=== PATIENT | male | born 1955 | race Caucasian/White ===

== ENCOUNTER 2018-10-04 13:56 | Inpatient (IN) ==
[~2018-10-04 13:56] MED LIST: CEFAZOLIN 2000MG 2,000 MG/15 ML SYR IV SCH; LR 15ML/HR IV SCH
[2018-10-04] MEDS ORDERED: fentaNYL citrate 100 MCG/2 ML VIAL ONE ×2 (14:10→15:34)
[2018-10-04] MEDS ORDERED: MIDAZOLAM HCL 1 MG/ML 2ML VIAL ONE ×2 (14:10→15:34)
--- NOTE | 2018-10-04 14:59 | XRay Report ---
XR chest 2V routine HISTORY: 63 years-old Male PRE OP preoperative exam. No acute chest complaints. COMPARISON: Chest radiograph 07/22/2017 TECHNIQUE: AP and lateral views of the chest FINDINGS: Cardiac mediastinal and hilar silhouettes are unchanged. No pneumothorax. Subsegmental bibasilar opac ities are seen best on the lateral view. Lungs are mildly hyperinflated with diaphragm flattening. Th ere is no pneumothorax, large pleural effusion or overt pulmonary edema. Degenerative changes of the shoulders and spine. Chronic postoperative changes about the distal right clavicle suggested. Fusion hardware of the cervical spine. IMPRESSION: 1. Mild subsegmental bibasilar opacities favor atelectasis. 2. Hyperinflation. The above report was generated using voice recognition software. It may contain grammatical, syntax o r spelling errors. Electronically signed by: Nathaniel Hernandez M.D. 10/04/2018 2:58 PM
[2018-10-04 15:08] LABS: Basophils # (auto) 0.01 K/uL (0-0.2); Basophils % (auto) 0.2 %; Eosinophils % (auto) 3.4 %; Hematocrit (blood only) 41.8 % (42-52); Hemoglobin 14.3 g/dL (14.0-18.0); Immature Granulocytes # (auto) 0.02 K/uL (0.00-0.02); Immature Granulocytes % (auto) 0.3 %; Lymphocytes # (auto) 1.84 K/uL (1.2-3.4); Lymphocytes % (auto) 30.9 %; Mean Corpuscular Hgb Conc 34.2 g/dL (32-36); Mean Platelet Volume 9.2 fL (7.4-10.4); Monocytes # (auto) 0.63 K/uL (0.11-0.59); Monocytes % (auto) 10.6 %; Neutrophils # (auto) 3.26 K/uL (1.4-6.5); Neutrophils % (auto) 54.6 %; Platelet Count 313 K/uL (130-400); RDW Coefficient of Variation 14.2 % (11.5-14.5); RDW Standard Deviation 45.7 fL (36.4-46.3); Red Blood Count 4.75 M/uL (4.7-6.1); White Blood Count 5.96 K/uL (4.8-10.8)
[2018-10-04 15:24] LABS: Partial Thromboplastin Time 27.7 Seconds (21.0-31.0); Prothrombin Time 10.3 Seconds (9.0-12.0)
[2018-10-04 15:25] LABS: Albumin Level 3.7 gm/dl (3.4-5.0); BUN Creatinine Ratio 17.6 (10-20); Calcium 9.2 mg/dl (8.5-10.1); Est GFR (African American) 116.5; Est GFR (Non-African American) 100.6; Potassium 3.9 mmol/L (3.5-5.1)
[2018-10-04 15:29] LABS: Bilirubin,Total 0.4 mg/dl (0.2-1); Globulin 3.6 gm/dl (2.5-4.0); Total Protein 7.3 gm/dl (6.4-8.2)
--- NOTE | 2018-10-04 15:32 | History & Physical Report ---
Date of Service October 04, 2018 Assessment & Plan (1) Fracture of femoral neck, right, closed: DIAGNOSIS: Right femoral neck fracture. PROCEDURE: Right hip closed reduction internal fixation with percutaneous pinning. PLAN: The patient is scheduled to undergo this procedure with Dr. Louis foreman at the [facility] this afternoon as an inpatient. Risks and complications of the procedure such as infection, bleeding, pain, scar, nerve, blood vessel damage, weakness, wound problems, stiffness, incomplete relief of symptoms, hardware failure, malunion, nonunion, arthritis, blood clots, embolism, heart attack, stroke and were explained to the patient by Dr. Rainey at his visit today. Informed consent to perform the procedure was obtained. We will also obtain a preoperative EKG, CBC with differential, complete metabolic panel, PT, INR. The patient states he will proceed to the hospital to receive this testing after we conclude with our preoperative assessments. I advised the patient that I will discharge him tomorrow with prescriptions for pain medication, an order for physical therapy, anti-inflammatory agents, and then we will increase his daily aspirin to twice daily to prevent blood clots. The patient was given an order to obtain a rolli ng walker for post-surgical treatment. I did check the PDMP and no red flags were raised that would prevent us from prescribing the patient any type of narcotic analgesic. The patient and his verbalized understanding of all information provided during today's visit, thanked us for the care that they received and stated if they have questions or concerns that should arise prior to this afternoon's procedure, they will address them prior to proceeding. History of Present Illness Chief Complaint: Right hip pain Primary Care Provider: Agustin White DO CHIEF COMPLAINT: Right hip pain. HISTORY OF PRESENT ILLNESS: This 63-year-old male presents to the clinic today for his evaluation by Dr. Vivar for right hip pain. The patient states that he has chronic left foot drop since undergoing back surgery. He states that his left toe caught on the edge of a sidewalk and he fell onto his right hip on August 20. Since that time, he has had persistent pain in his right groin area. He states that he saw his PCP at the [facility] and was diagnosed with SI joint dysfunction, had manipulation done that did help with some posterior lower back pain, but he states that the right hip pain has persisted. The patient had an MRI done of the right hip and it shows a minimally displaced right femoral neck fracture. PAST SURGICAL HISTORY: Lumbar laminectomy, irrigation and debridement of the spine, cervical laminectomy with fusion, bilateral total knee replacement, bilateral knee arthroscopy, colonoscopy, inguinal hernia repair, right carpal tunnel release, right wrist fracture, ORIF, right rotator cuff repair. PAST MEDICAL HISTORY: Atrial fibrillation, dural tear, SIADH, hyperlipidemia, mitral valve prolapse, ocular myasthenia, and spinal stenosis. FAMILY HISTORY: Positive for hypertension, cancer, and stroke. ALLERGIES: The patient has no known drug allergies. CURRENT MEDICATIONS: Ambien, unknown dosage daily, aspirin 81-mg tablet daily, atorvastatin 10-mg oral tablet daily, calcium with vitamin D 500 mg 1 tablet twice daily, Flomax 0.8 mg daily, Lotrisone 1%-0.5% topical cream as needed, multivitamin 1 tab daily, propafenone 225-mg oral tablet daily, pyridostigmine 60-mg oral tablet 1 tab 4 times daily, simvastatin 20-mg oral tablet 1/2 tab at bedtime, Tylenol 500-mg oral tablet 2 tabs every 8 hours as needed for pain and vitamin E 1000 international units daily. SOCIAL HISTORY: The patient states that he was a pack per day smoker but quit in 1986. He consumes approximately 3 alcoholic beverages per week, but denies any illicit drug use. MRI: MRI of the right hip done on 09/29 shows a complete fracture through the femoral neck with surrounding edema with slight displacement less than 1 mm in size. Allergies Allergy/AdvReac Type Severity Reaction Status Date / Time No Known Allergies Allergy Unverified 07/12/17 11:40 Home Medications Home Medications Medication Instructions Recorded Confirmed Type ASPIRIN (ASPIRIN EC) 81 mg PO QAM #0 07/05/17 10/04/18 History Acetaminophen Tab (TYLENOL) 650 mg PO BID #0 tab 07/05/17 10/04/18 History CALCIUM 600 mg PO BID #0 07/05/17 History Flecainide (Tambocor) 100 mg PO BID #0 tab 07/05/17 History Loratadine (Claritin) 10 mg PO PRN #0 tab 07/05/17 10/04/18 History Multivitamin 1 tab PO QAM #0 tab 07/05/17 10/04/18 History NAPROXEN (NAPROSYN) 250 mg PO BID #0 tab 07/05/17 10/04/18 History Pyridostigmine [place] (Mestinon) 60 mg PO QID #0 tab 07/05/17 10/04/18 History Simvastatin (Zocor) 10 mg PO QPM #0 tab 07/05/17 10/04/18 History Terbinafine (Terbinafine HCl) 250 mg PO QAM #0 07/05/17 10/04/18 History VITAMIN E 1 tab PO BID #0 07/05/17 10/04/18 History propafenone 10/04/18 History Past Med/Surg History Medical History Atrial fibrillation (Acute) DVT (deep venous thrombosis) (Acute) Family history of reaction to anesthesia (Acute) [place] filter in place (Acute) Hyperlipemia (Acute) Meningitis after procedure (Acute) Pulmonary embolus (Acute) Sepsis (Acute) Social History Preferred Language: Slovak Communication Ability: Effective 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 No open skin lesions or discharge. Eyes: Pupils are equal and react to light and accommodating. Extraocular movements are intact. Throat: Posterior oropharynx is clear with absence of edema, erythema or exudate. Cardiovascular exam: The patient has a regular rate and rhythm with a grade 1- 2/6 holosystolic murmur heard best over the left upper sternal border. Lungs: Auscultation of lung gross reveals clear breath sounds throughout, no wheezing, rales, or rhonchi. Abdomen is mildly obese, nondistended, nontender with normoactive bowel sounds. Extremities: Left hip. The patient has a positive log roll test, positive Stinchfield test. Range of motion of the hip is limited to 90 degrees of flexion and external rotation to 50 degrees, internal rotation to 20 degrees. Impingement and Scour tests are both positive. The patient ex periences referred groin pain with internal and external rotation with the hip flexed. The patient does walk with an antalgic gait as well. Neurological exam: Cranial nerves 2-12 are intact. No motor or sensory deficit. Psychological/general exam: The patient is alert and oriented x3 with proper grooming and hygiene. Results & Data Vital Signs (Past 12 Hours) Vital Signs Temp Pulse Resp BP Pulse Ox 10/04/18 15:14 37 C 70 16 129/91 97 Laboratory Results 10/04/18 10/04/18 10/04/18 Range/Units 14:13 14:09 14:09 WBC (4.8-10.8) K/uL RBC (4.7-6.1) M/uL Hgb (14.0-18.0) g/dL Hct (42-52) % MCV (80-100) fL MCH (25-34) pg MCHC (32-36) g/dL RDW Std Deviation (36.4-46.3) fL RDW Coeff of Jesse (11.5-14.5) % Plt Count (130-400) K/uL MPV (7.4-10.4) fL Immature Gran % (Auto) % Neut % (Auto) % Lymph % (Auto) % Foster % (Auto) % Eos % (Auto) % Baso % (Auto) % Immature Gran # (Auto) (0.00-0.02) K/uL Neut # (Auto) (1.4-6.5) K/uL Lymph # (Auto) (1.2-3.4) K/uL Foster # (Auto) (0.11-0.59) K/uL Eos # (Auto) (0-0.5) K/uL Baso # (Auto) (0-0.2) K/uL PT 10.3 (9.0-12.0) Seconds INR 1.0 (0.9-1.1) APTT 27.7 (21.0-31.0) Seconds PTT Ratio 1.0 Sodium 142 (136-145) mmol/L Potassium 3.9 (3.5-5.1) mmol/L Chloride 109 H (98-107) mmol/L Carbon Dioxide 27 (21-32) mmol/L Anion Gap 6.0 (3-11) BUN 13 (7-18) mg/dl Creatinine 0.71 (0.6-1.4) mg/dl Est Cr Clr Drug Dosing 123.0 ml/min Est GFR ( Amer) 116.5 Est GFR (Non-Af Amer) 100.6 BUN/Creatinine Ratio 17.6 (10-20) Glucose 77 (70-99) mg/dl Calcium 9.2 (8.5-10.1) mg/dl Total Bilirubin 0.4 (0.2-1) mg/dl AST 15 (15-37) U/L ALT 27 (12-78) U/L Alkaline Phosphatase 167 H (45-117) U/L Total Protein 7.3 (6.4-8.2) gm/dl Albumin 3.7 (3.4-5.0) gm/dl Globulin 3.6 (2.5-4.0) gm/dl Albumin/Globulin Ratio 1.0 (0.9-2) Blood Type Pending Antibody Screen Pending 10/04/18 Range/Units 14:09 WBC 5.96 (4.8-10.8) K/uL RBC 4.75 (4.7-6.1) M/uL Hgb 14.3 (14.0-18.0) g/dL Hct 41.8 L (42-52) % MCV 88.0 (80-100) fL MCH 30.1 (25-34) pg MCHC 34.2 (32-36) g/dL RDW Std Deviation 45.7 (36.4-46.3) fL RDW Coeff of Jesse 14.2 (11.5-14.5) % Plt Count 313 (130-400) K/uL MPV 9.2 (7.4-10.4) fL Immature Gran % (Auto) 0.3 % Neut % (Auto) 54.6 % Lymph % (Auto) 30.9 % Foster % (Auto) 10.6 % Eos % (Auto) 3.4 % Baso % (Auto) 0.2 % Immature Gran # (Auto) 0.02 (0.00-0.02) K/uL Neut # (Auto) 3.26 (1.4-6.5) K/uL Lymph # (Auto) 1.84 (1.2-3.4) K/uL Foster # (Auto) 0.63 H (0.11-0.59) K/uL Eos # (Auto) 0.20 (0-0.5) K/uL Baso # (Auto) 0.01 (0-0.2) K/uL PT (9.0-12.0) Seconds INR (0.9-1.1) APTT (21.0-31.0) Seconds PTT Ratio Sodium (136-145) mmol/L Potassium (3.5-5.1) mmol/L Chloride (98-107) mmol/L Carbon Dioxide (21-32) mmol/L Anion Gap (3-11) BUN (7-18) mg/dl Creatinine (0.6-1.4) mg/dl Est Cr Clr Drug Dosing ml/min Est GFR ( Amer) Est GFR (Non-Af Amer) BUN/Creatinine Ratio (10-20) Glucose (70-99) mg/dl Calcium (8.5-10.1) mg/dl Total Bilirubin (0.2-1) mg/dl AST (15-37) U/L ALT (12-78) U/L Alkaline Phosphatase (45-117) U/L Total Protein (6.4-8.2) gm/dl Albumin (3.4-5.0) gm/dl Globulin (2.5-4.0) gm/dl Albumin/Globulin Ratio (0.9-2) Blood Type Antibody Screen
[2018-10-04] MEDS ORDERED: BUPIVACAINE 0.5 % 5 MG/1 ML PF 10ML VIAL ONE (16:29)
--- NOTE | 2018-10-04 16:40 | Anesthesiology Consultation ---
Date of Service October 04, 2018 Assessment & Plan Chart Review Chart Review: Acceptable Risk for Surgery Consults Requested none History Surgery Operation Date: 10/04/18 08:50 Proposed Procedures p Right Hip Closed Reduction Internal Fixation, Percutaneous Pinning - Louis Rainey MD Height/Weight Height: 5 ft 10 in Weight: 92.323 kg Allergies Allergy/AdvReac Type Severity Reaction Status Date / Time No Known Allergies Allergy Unverified 07/12/17 11:40 Medications Home Medications Medication Instructions Recorded Confirmed Last Taken ASPIRIN (ASPIRIN EC) 81 mg PO QAM #0 07/05/17 10/04/18 10/03/18 19:00 Acetaminophen Tab (TYLENOL) 650 mg PO BID #0 tab 07/05/17 10/04/18 10/04/18 07:00 CALCIUM 600 mg PO BID #0 07/05/17 08/31/16 Flecainide (Tambocor) 100 mg PO BID #0 tab 07/05/17 Unknown Loratadine (Claritin) 10 mg PO PRN #0 tab 07/05/17 10/04/18 09/27/18 Multivitamin 1 tab PO QAM #0 tab 07/05/17 10/04/18 10/04/18 07:00 NAPROXEN (NAPROSYN) 250 mg PO BID #0 tab 07/05/17 10/04/18 Unknown Pyridostigmine [place] (Mestinon) 60 mg PO QID #0 tab 07/05/17 10/04/18 10/04/18 07:00 Simvastatin (Zocor) 10 mg PO QPM #0 tab 07/05/17 10/04/18 10/03/18 19:00 Terbinafine (Terbinafine HCl) 250 mg PO QAM #0 07/05/17 10/04/18 10/03/18 19:00 VITAMIN E 1 tab PO BID #0 07/05/17 10/04/18 10/03/18 19:00 propafenone 10/04/18 10/04/18 07:00 NPO Date Last Intake of Fluids: 10/04/18 Time Last Intake of Fluids: 07:30 Date Last Intake of Solids: 10/04/18 Time Last Intake of Solids: 07:30 Past Medical History Medical History Atrial fibrillation (Acute) DVT (deep venous thrombosis) (Acute) Family history of reaction to anesthesia (Acute) [place] filter in place (Acute) Hyperlipemia (Acute) Meningitis after procedure (Acute) Pulmonary embolus (Acute) Sepsis (Acute) Social History Smoking Status: Former smoker Hx Alcohol Use: Yes Alcohol type: beer and wine alcohol intake frequency: a few times a week Physical Exam Vital Signs Last Vital Signs Temp 37 C 10/04/18 15:14 Pulse 70 10/04/18 15:14 Resp 16 10/04/18 15:14 BP 129/91 10/04/18 15:14 Pulse Ox 97 10/04/18 15:14 Testing Laboratory Results 10/04/18 14:09 10/04/18 14:09 PT 10.3 Seconds (9.0-12.0) 10/04/18 14:09 INR 1.0 (0.9-1.1) 10/04/18 14:09 APTT 27.7 Seconds (21.0-31.0) 10/04/18 14:09
[2018-10-04] MEDS ORDERED: ONDANSETRON INJ 2 MG/ML 2 ML VIAL IV PRN ×3 (16:41→18:32)
[2018-10-04] MEDS ORDERED: ePHEDrine sulfate 50 MG/ML AMP IV PRN ×2 (16:41→18:32)
[2018-10-04] MEDS ORDERED: DEXAMETHASONE SOD INJ 4 MG/ML VIAL IV PRN (16:41)
[2018-10-04] MEDS ORDERED: HYDROmorphone INJ 2 MG/ML SYR/VIAL IV PRN (16:41)
[2018-10-04] MEDS ORDERED: fentaNYL citrate 100 MCG/2 ML VIAL IV PRN (16:41)
[2018-10-04] MEDS ORDERED: ATROPINE SULFATE 0.1 MG/ML 10ML SYR IV PRN ×2 (16:41→18:32)
--- NOTE | 2018-10-04 16:43 | History & Physical Bridge Note ---
Date of Service October 04, 2018 History & Physical Bridge Note I have examined the patient, reviewed the History & Physical and in the interval since the performance of the History & Physical I have noted the following changes of clinical significance: proceeding to OR today
[2018-10-04] MEDS ORDERED: PHENYLEPHRINE 100MCG/ML 5ML SYR ONE (17:33)
[2018-10-04] MEDS ORDERED: PROPOFOL IV EMULSION 10 MG/ML 20 ML VIAL IV ONE ×2 (17:33→17:51)
[2018-10-04] MEDS ORDERED: LIDOCAINE HCL 2% 2 ML VIAL/AMP(20MG/ML) INFIL ONE (17:33)
[2018-10-04] MEDS ORDERED: ePHEDrine sulfate 50 MG/ML SYR ONE (17:33)
--- NOTE | 2018-10-04 18:21 | Fluoroscopy Report ---
FL hip RT 2-3V CLINICAL HISTORY: Right hip fracture. COMPARISON STUDY: Right hip 10/04/2018. FLUOROSCOPY TIME: 1 minute and 24 seconds. FINDINGS: 4 fluoroscopic spot images of the right hip demonstrates internal fixation of the femoral n rose fracture with 3 cannulated screws. The hardware appears intact. IMPRESSION: Fluoroscopy provided for internal fixation of a right femoral neck fracture. Electronically signed by: Marko Martinez M.D. 10/04/2018 6:20 PM
[2018-10-04] MEDS ORDERED: OXYCODONE HCL IR 5 MG TAB (IMMEDIATE RELEASE) PO PRN (18:24)
[2018-10-04] MEDS ORDERED: NALOXONE HCL 0.4 MG/1 ML VIAL/CARP IV PRN (18:24)
[2018-10-04] MEDS ORDERED: BISACODYL 10 MG SUPP PR PRN (18:24)
[2018-10-04] MEDS ORDERED: MAGNESIUM HYDROXIDE SUSP 30 ML UDC PO PRN (18:24)
[2018-10-04] MEDS ORDERED: MoRPHine SULFATE 2 MG/ML CARP IV PRN (18:24)
--- NOTE | 2018-10-04 18:24 | Operative Report ---
Post Operative Report Pre & Post Diagnosis Operation Date: 10/04/18 08:50 Pre-Op Diagnosis: right femoral neck fracture Post-Op Diagnosis: right femoral neck fracture Procedure Operation Date: 10/04/18 08:50 Actual Procedures p Right Hip Closed Reduction Internal Fixation, Percutaneous Pinning(Right) - Louis Rainey MD Surgeon Louis Rainey MD Concrete Vibrator Operator Andrea Chris PA-C Estimated Blood Loss 25 Findings Consistent with Post-Op Diagnosis Specimens none Complications none Disposition Accompanied Patient To Recovery: Yes Disposition: Recovery Room Description of Procedure I was present during the entire procedure assisting with wound closure and dressing application. Please see Dr. Rainey procedure note for specifics of the case. I attest to the content of the Intraoperative Record and any orders documented therein. Any exceptions are noted below.
[2018-10-04] MEDS ORDERED: DiphenhydrAMINE HCL 50 MG/ML VIAL IV PRN (18:28)
[2018-10-04] MEDS ORDERED: METOCLOPRAMIDE HCL INJ 5 MG/ML 2 ML VIAL IV PRN (18:28)
[2018-10-04] MEDS ORDERED: TAMSULOSIN HCL 0.4 MG CAP PO PRN (18:28)
[2018-10-04] MEDS ORDERED: KETOROLAC 30 MG/ML VIAL IV PRN (18:32)
[2018-10-04] MEDS ORDERED: HYDROmorphone INJ 1 MG/ML SYRINGE IV PRN (18:32)
[2018-10-04] MEDS ORDERED: LORATADINE 10 MG TAB PO PRN (18:45)
--- NOTE | 2018-10-04 19:14 | XRay Report ---
XR hip RT min 2V CLINICAL HISTORY: Post-Operative implant position COMPARISON: 10/04/2018 DISCUSSION: 3 cannulated femoral neck screws fixate a subcapital right hip fracture. Alignment appear s satisfactory. IMPRESSION: Internally fixated subcapital hip fracture with 3 cannulated screws Electronically signed by: Martín Martinez M.D. 10/04/2018 7:13 PM
--- NOTE | 2018-10-04 19:20 | Anesthesiology Progress Note ---
Date of Service October 04, 2018 Anesthesia Post Procedure Vital Signs Vital Signs: Temp Pulse Pulse Resp BP BP Pulse Ox 10/04/18 19:10 60 13 132/95 100 10/04/18 19:00 61 19 130/87 100 10/04/18 18:50 72 22 115/84 100 10/04/18 18:40 66 18 131/87 100 10/04/18 18:30 74 21 125/86 100 10/04/18 18:23 36.2 C L 86 18 114/84 100 10/04/18 15:14 37 C 70 16 129/91 97 Pain Intensity Right Hip: Pain Intensity: 0 Transfer of Care Handoff Completed per policy Notes Mental Status: alert / awake / arousable and participated in evaluation Patient Amnestic to Procedure: Yes Nausea / Vomiting: adequately controlled Pain: adequately controlled Airway Patency, RR, SpO2: stable & adequate BP & HR: stable & adequate Hydration State: stable & adequate Neuraxial Anesthesia: was administered and sensory block is resolving Anesthetic Complications: no major complications apparent
[2018-10-04] MEDS ORDERED: ACETAMINOPHEN 325 MG TAB PO PRN (20:00)
[2018-10-04] MEDS ORDERED: SODIUM CHLORIDE 0.9% 1000ML 1,000 ML IV SCH (20:00)
[2018-10-04] MEDS ORDERED: NAPROXEN 250 MG TAB PO PRN (20:03)
[2018-10-04] MEDS ORDERED: SIMVASTATIN 10 MG TAB PO SCH (21:00)
[2018-10-04] MEDS ORDERED: SENNA 8.6 MG TAB PO SCH (21:00)
[2018-10-04] MEDS: CEFAZOLIN 2000MG 2,000 MG/15 ML SYR IV SCH (21:05)
[2018-10-04] MEDS: ASPIRIN 81 MG ECTAB PO SCH (21:05)
[2018-10-04] MEDS: PYRIDOSTIGMINE BROMIDE 60 MG TAB PO SCH (21:06)
[2018-10-04] MEDS: TOCOPHERYL, DL-ALPHA 400 UNITS CAP PO SCH (21:07)
[2018-10-04] MEDS: ACETAMINOPHEN 500 MG TAB PO SCH (21:09)
--- NOTE | 2018-10-05 00:29 | Operative Report ---
DATE OF OPERATION: 10/04/2018 PREOPERATIVE DIAGNOSIS: Right nondisplaced closed femoral neck fracture. POSTOPERATIVE DIAGNOSIS: Right nondisplaced closed femoral neck fracture. OPERATION PERFORMED: Closed reduction percutaneous pinning of right nondisplaced femoral neck fracture. SURGEON: Louis Rainey MD DUPLICATING MACHINE SERVICER: Christo Chris. ESTIMATED BLOOD LOSS: 25 mL. INTRAVENOUS FLUIDS: 1000 mL crystalloid. SPECIMENS: None. COMPLICATIONS: None. IMPLANTS: Three Synthes 7.3 mm screws, measuring 100, 95, and 90 mm. The 100 mm screw head 32 mm thread lengths and the other 2 screws had 16 mm thread lengths. INDICATIONS: Mr. Hart is a 63-year-old gentleman who took a hard fall 5 weeks ago. He was able to walk on it afterwards but continued to have hip pain. He was evaluated down in [place] where x-rays were obtained which were negative. He was allowed to weightbear on it and started to get better by the time he first presented to my clinic. X-rays at that time similarly were negative. However, a week or two later, he continued to have hip pain with difficulty ambulating and therefore we sent him for an MRI, which showed a nondisplaced fracture of the femoral neck. His hip joint is relatively well preserved with only mild arthritis and therefore I discussed with him treatment options including a nonsurgical treatment versus surgery with a closed reduction percutaneous pinning versus a total hip. I think that if we can get this fracture to heal that is the best option for him in the short term, although he understands there is a chance he may need a total hip in the [facility]. After reviewing all his options, he elected to proceed with surgery. All questions were answered. Informed consent was signed. DESCRIPTION OF OPERATION: The patient was identified in the preoperative holding area where his surgical site was marked. He was given a spinal anesthetic, then brought back to the main operating room where he was placed on the operating room table and all bony prominences were padded. Intravenous sedation was administered. He was placed on the hip fracture table with the contralateral leg abducted and flexed ____ C-arm fluoroscopy of the operative right hip. Fluoroscopy was brought in to verify that we could get our proper images and that we had an excellent reduction of his nondisplaced fracture, which was confirmed. The extremity was then prepped and draped in the normal sterile fashion. Prior to incision, a multidisciplinary timeout was called. All in the room were in agreement. I began by marking out on his skin with the AP and lateral views, the proper incision site for our skin. A 4 cm long incision was then made over the lateral aspect of the thigh. We dissected down through subcutaneous tissues to the level of the fascia. We then placed our first screw by hand for the inferior screw of an inverted triangle. This was optimized on the AP and lateral views and then drilled up along the inferior aspect of the femoral neck into the femoral head, stopping just short of the subchondral bone. Next, our anterior superior screw was placed in using a similar technique utilizing both AP and lateral fluoroscopic views. Finally, the third posterior superior K-wire was placed under fluoroscopy. We then took our measurements. We then drilled the cortex and up through the fracture. The screws were then sequentially placed starting with the inferior screw. This was a 32 mm threaded screw which did cross the fracture site and gave us good compression of the fracture as we tightened down the screw with an excellent bite. We then used 16 mm threaded screws as 32 mm thread length was not likely to cross the fracture site with these screws. These were placed without difficulty under fluoroscopic guidance. The wires were then removed. We then used fluoroscopy checking every 10 degrees between a completely vertical and a crosstable in lateral position to confirm that the screws were out of the joint on all views which was confirmed. The wound was then irrigated with copious amounts of normal saline. The subcutaneous layer was closed with a single inverted #1 Vicryl suture. A 2-0 Vicryl were used in interrupted buried fashion for the deep dermis. Zhang were used for the skin. Xeroform, 4 x 4's, and a Tegaderm dressing was placed. The patient's sedation was lifted. He was transferred to the hospital bed and then transferred to the recovery room in stable condition. POSTOPERATIVE COURSE: The patient will be admitted overnight for pain control and monitoring. He will work with physical therapy tomorrow, weightbearing as tolerated on the right lower extremity. He will be on aspirin for DVT prophylaxis. I attest to the content of the Intraoperative Record and any orders documented therein. Any exception s are noted below.
[2018-10-05] MEDS: ACETAMINOPHEN 500 MG TAB PO SCH (05:39)
[2018-10-05] MEDS: CEFAZOLIN 2000MG 2,000 MG/15 ML SYR IV SCH (05:39)
[2018-10-05 06:35] LABS: Basophils # (auto) 0.01 K/uL (0-0.2); Basophils % (auto) 0.1 %; Eosinophils # (auto) 0.03 K/uL (0-0.5); Eosinophils % (auto) 0.3 %; Hematocrit (blood only) 40.5 % (42-52); Hemoglobin 13.8 g/dL (14.0-18.0); Immature Granulocytes # (auto) 0.03 K/uL (0.00-0.02); Immature Granulocytes % (auto) 0.3 %; Lymphocytes % (auto) 16.4 %; Mean Corpuscular Hgb Conc 34.1 g/dL (32-36); Mean Corpuscular Volume 88.8 fL (80-100); Mean Platelet Volume 8.9 fL (7.4-10.4); Monocytes # (auto) 0.93 K/uL (0.11-0.59); Monocytes % (auto) 10.2 %; Neutrophils # (auto) 6.63 K/uL (1.4-6.5); Neutrophils % (auto) 72.7 %; Platelet Count 286 K/uL (130-400); RDW Coefficient of Variation 14.3 % (11.5-14.5); RDW Standard Deviation 46.6 fL (36.4-46.3); Red Blood Count 4.56 M/uL (4.7-6.1); White Blood Count 9.13 K/uL (4.8-10.8)
[2018-10-05 07:03] LABS: Calcium 8.6 mg/dl (8.5-10.1); Creatinine Clr Calc Pharmacy 105.4 ml/min; Est GFR (African American) 109.3; Est GFR (Non-African American) 94.3; Potassium 4.5 mmol/L (3.5-5.1)
[2018-10-05] MEDS: TOCOPHERYL, DL-ALPHA 400 UNITS CAP PO SCH (08:22)
[2018-10-05] MEDS: PYRIDOSTIGMINE BROMIDE 60 MG TAB PO SCH (08:22)
[2018-10-05] MEDS: ASPIRIN 81 MG ECTAB PO SCH (08:23)
[2018-10-05] MEDS ORDERED: MULTIVITAMIN TAB PO SCH (09:00)
[2018-10-05] MEDS ORDERED: ASPIRIN 81 MG ECTAB PO SCH (09:00)
[2018-10-05] MEDS ORDERED: TERBINAFINE HCL 250 MG TAB PO SCH (09:00)
--- NOTE | 2018-10-05 09:44 | Orthopedic Progress Note ---
Date of Service October 05, 2018 Assessment & Plan (1) Fracture of femoral neck, right, closed: POD 1 - s/p ORIF right femoral neck subacute fracture May be out of bed, weight bearing as tolerated right lower extremity with assistance of crutches Regular diet as tolerated Pain medication as prescribed. Ice/elevation as needed for pain/swelling Allowed for full range of motion right hip joint as tolerated. May shower as tolerated, leave dressings in place. ASA 81 mg BID for DVT prophylaxis. PT today. Discharge instructions reviewed. Plan to discharge to home today with his . All questions answered. Present on Admission?: Yes Subjective Patient is doing well, feeling much less pain that before surgery. He denies chest pain, shortness of breath, nausea, vomiting, issues with going to the bathroom. He states that he has been out of bed this morning. Saw PT. Using crutches to assist with ambulation. Physical Exam Physical Exam: right hip incision dressing clean, dry, intact. Moves hip well without pain. No distal edema, Teds stockings in place. Distal N/V intact. strength 5/5. No calf tenderness. Results & Data Vital Signs (Past 12 Hours) Vital Signs Temp Pulse Pulse Resp BP Pulse Ox 10/05/18 07:40 36.4 C L 68 18 118/72 98 10/05/18 03:50 36.8 C 84 18 132/87 97 10/04/18 23:35 36.4 C L 83 16 137/91 96 10/04/18 22:20 36.3 C L 81 18 124/85 97 Laboratory Results 10/05/18 10/05/18 10/04/18 Range/Units 06:10 06:10 14:13 WBC 9.13 (4.8-10.8) K/uL RBC 4.56 L (4.7-6.1) M/uL Hgb 13.8 L (14.0-18.0) g/dL Hct 40.5 L (42-52) % MCV 88.8 (80-100) fL MCH 30.3 (25-34) pg MCHC 34.1 (32-36) g/dL RDW Std Deviation 46.6 H (36.4-46.3) fL RDW Coeff of Jesse 14.3 (11.5-14.5) % Plt Count 286 (130-400) K/uL MPV 8.9 (7.4-10.4) fL Immature Gran % (Auto) 0.3 % Neut % (Auto) 72.7 % Lymph % (Auto) 16.4 % [place] % (Auto) 10.2 % Eos % (Auto) 0.3 % Baso % (Auto) 0.1 % Immature Gran # (Auto) 0.03 H (0.00-0.02) K/uL Neut # (Auto) 6.63 H (1.4-6.5) K/uL Lymph # (Auto) 1.50 (1.2-3.4) K/uL [place]odd[place] # (Auto) 0.93 H (0.11-0.59) K/uL Eos # (Auto) 0.03 (0-0.5) K/uL Baso # (Auto) 0.01 (0-0.2) K/uL PT (9.0-12.0) Seconds INR (0.9-1.1) APTT (21.0-31.0) Seconds PTT Ratio Sodium 141 (136-145) mmol/L Potassium 4.5 D (3.5-5.1) mmol/L Chloride 107 (98-107) mmol/L Carbon Dioxide 26 (21-32) mmol/L Anion Gap 8.0 (3-11) BUN 13 (7-18) mg/dl Creatinine 0.83 (0.6-1.4) mg/dl Est Cr Clr Drug Dosing 105.4 ml/min Est GFR ( Amer) 109.3 Est GFR (Non-Af Amer) 94.3 BUN/Creatinine Ratio 16.0 (10-20) Glucose 108 H (70-99) mg/dl Calcium 8.6 (8.5-10.1) mg/dl Total Bilirubin (0.2-1) mg/dl AST (15-37) U/L ALT (12-78) U/L Alkaline Phosphatase (45-117) U/L Total Protein (6.4-8.2) gm/dl Albumin (3.4-5.0) gm/dl Globulin (2.5-4.0) gm/dl Albumin/Globulin Ratio (0.9-2) Blood Type O Positive Antibody Screen NEGATIVE 07/23/19 07/23/19 07/23/19 Range/Units 14:09 14:09 14:09 WBC 5.96 (4.8-10.8) K/uL RBC 4.75 (4.7-6.1) M/uL Hgb 14.3 (14.0-18.0) g/dL Hct 41.8 L (42-52) % MCV 88.0 (80-100) fL MCH 30.1 (25-34) pg MCHC 34.2 (32-36) g/dL RDW Std Deviation 45.7 (36.4-46.3) fL RDW Coeff of Jesse 14.2 (11.5-14.5) % Plt Count 313 (130-400) K/uL MPV 9.2 (7.4-10.4) fL Immature Gran % (Auto) 0.3 % Neut % (Auto) 54.6 % Lymph % (Auto) 30.9 % [place] % (Auto) 10.6 % Eos % (Auto) 3.4 % Baso % (Auto) 0.2 % Immature Gran # (Auto) 0.02 (0.00-0.02) K/uL Neut # (Auto) 3.26 (1.4-6.5) K/uL Lymph # (Auto) 1.84 (1.2-3.4) K/uL [place] # (Auto) 0.63 H (0.11-0.59) K/uL Eos # (Auto) 0.20 (0-0.5) K/uL Baso # (Auto) 0.01 (0-0.2) K/uL PT 10.3 (9.0-12.0) Seconds INR 1.0 (0.9-1.1) APTT 27.7 (21.0-31.0) Seconds PTT Ratio 1.0 Sodium 142 (136-145) mmol/L Potassium 3.9 (3.5-5.1) mmol/L Chloride 109 H (98-107) mmol/L Carbon Dioxide 27 (21-32) mmol/L Anion Gap 6.0 (3-11) BUN 13 (7-18) mg/dl Creatinine 0.71 (0.6-1.4) mg/dl Est Cr Clr Drug Dosing 123.0 ml/min Est GFR ( Amer) 116.5 Est GFR (Non-Af Amer) 100.6 BUN/Creatinine Ratio 17.6 (10-20) Glucose 77 (70-99) mg/dl Calcium 9.2 (8.5-10.1) mg/dl Total Bilirubin 0.4 (0.2-1) mg/dl AST 15 (15-37) U/L ALT 27 (12-78) U/L Alkaline Phosphatase 167 H (45-117) U/L Total Protein 7.3 (6.4-8.2) gm/dl Albumin 3.7 (3.4-5.0) gm/dl Globulin 3.6 (2.5-4.0) gm/dl Albumin/Globulin Ratio 1.0 (0.9-2) Blood Type Antibody Screen Diagnostic Findings XR hip RT min 2V CLINICAL HISTORY: Post-Operative implant position COMPARISON: 10/04/2018 DISCUSSION: 3 cannulated femoral neck screws fixate a subcapital right hip fracture. Alignment appears satisfactory. IMPRESSION: Internally fixated subcapital hip fracture with 3 cannulated screws
--- NOTE | 2018-10-05 09:58 | Anesthesiology Progress Note ---
Date of Service October 05, 2018 Anesthesia Post Procedure Vital Signs Vital Signs: Temp Pulse Pulse Pulse Resp BP BP 10/05/18 07:40 36.4 C L 68 18 118/72 10/05/18 03:50 36.8 C 84 18 132/87 10/04/18 23:35 36.4 C L 83 16 137/91 10/04/18 22:20 36.3 C L 81 18 124/85 10/04/18 21:19 36.4 C L 77 18 120/81 10/04/18 20:19 36.3 C L 65 18 144/92 H 10/04/18 19:58 36.4 C L 66 16 130/85 10/04/18 19:35 36.5 C 56 L 16 126/81 10/04/18 19:20 36.3 C L 61 18 128/84 10/04/18 19:10 60 13 132/95 10/04/18 19:00 61 19 130/87 10/04/18 18:50 72 22 115/84 10/04/18 18:40 66 18 131/87 10/04/18 18:30 74 21 125/86 10/04/18 18:23 36.2 C L 86 18 114/84 10/04/18 15:14 37 C 70 16 129/91 Pulse Ox 10/05/18 07:40 98 10/05/18 03:50 97 10/04/18 23:35 96 10/04/18 22:20 97 10/04/18 21:19 95 10/04/18 20:19 98 10/04/18 19:58 98 10/04/18 19:35 100 10/04/18 19:20 100 10/04/18 19:10 100 10/04/18 19:00 100 10/04/18 18:50 100 10/04/18 18:40 100 10/04/18 18:30 100 10/04/18 18:23 100 10/04/18 15:14 97 Notes Mental Status: alert / awake / arousable and participated in evaluation Nausea / Vomiting: adequately controlled Pain: adequately controlled Airway Patency, RR, SpO2: stable & adequate BP & HR: stable & adequate Hydration State: stable & adequate Neuraxial Anesthesia: sensory block resolved
--- NOTE | 2018-10-05 10:34 | Discharge Summary ---
Date of Service October 05, 2018 Admission HPI Per Admitting Provider CHIEF COMPLAINT: Right hip pain. HISTORY OF PRESENT ILLNESS: This 63-year-old male presents to the clinic today for his evaluation by Dr. Vivar for right hip pain. The patient states that he has chronic left foot drop since undergoing back surgery. He states that his left toe caught on the edge of a sidewalk and he fell onto his right hip on August 20. Since that time, he has had persistent pain in his right groin area. He states that he saw his PCP at the [facility] and was diagnosed with SI joint dysfunction, had manipulation done that did help with some posterior lower back pain, but he states that the right hip pain has persisted. The patient had an MRI done of the right hip and it shows a minimally displaced right femoral neck fracture. PAST SURGICAL HISTORY: Lumbar laminectomy, irrigation and debridement of the spine, cervical laminectomy with fusion, bilateral total knee replacement, bilateral knee arthroscopy, colonoscopy, inguinal hernia repair, right carpal tunnel release, right wrist fracture, ORIF, right rotator cuff repair. PAST MEDICAL HISTORY: Atrial fibrillation, dural tear, SIADH, hyperlipidemia, mitral valve prolapse, ocular myasthenia, and spinal stenosis. FAMILY HISTORY: Positive for hypertension, cancer, and stroke. ALLERGIES: The patient has no known drug allergies. CURRENT MEDICATIONS: Ambien, unknown dosage daily, aspirin 81-mg tablet daily, atorvastatin 10-mg oral tablet daily, calcium with vitamin D 500 mg 1 tablet twice daily, Flomax 0.8 mg daily, Lotrisone 1%-0.5% topical cream as needed, multivitamin 1 tab daily, propafenone 225-mg oral tablet daily, pyridostigmine 60-mg oral tablet 1 tab 4 times daily, simvastatin 20-mg oral tablet 1/2 tab at bedtime, Tylenol 500-mg oral tablet 2 tabs every 8 hours as needed for pain and vitamin E 1000 international units daily. SOCIAL HISTORY: The patient states that he was a pack per day smoker but quit in 1986. He consumes approximately 3 alcoholic beverages per week, but denies any illicit drug use. MRI: MRI of the right hip done on 09/29 shows a complete fracture through the femoral neck with surrounding edema with slight displacement less than 1 mm in size. Discharge Data Consultations 10/04/18 18:24 Consult Case Management - Discharge Planning Routine 10/05/18 08:00 Consult Case Management - Discharge Planning Routine Procedures Performed Operation Date: 10/04/18 08:50 Actual Procedures p Right Hip Closed Reduction Internal Fixation, (Right) - Louis Rainey MD s Percutaneous Pinning(Right) - Louis Rainey MD Hospital Course (1) Fracture of femoral neck, right, closed: Patient was admitted to [facility] on 10/04/18 after undergoing a right hip open reduction internal fixation of his right femoral neck fracture. His surgery was performed by Dr. Rainey and assisted by ADAIR Chris PA-C. He had general anesthesia and was given IV Ancef for surgical prophylaxis which was continued for 24 hours after the procedure. He tolerated the procedure well without any intra-operative complications. Intra-operative films confirmed reduction, post operative x-rays in recovery room also confirmed reduction. He was allowed out of bed, weight bear as tolerated right lower extremity. He was placed on Aspirin 81mg twice daily for DVT prophylaxis as well as BRAEDEN stockings. he was given a regular diet which he tolerated during his inpatient stay. He had physical therapy on 10/05/18 and did well out of bed, he was deemed safe for home. Case management saw for disposition needs. He has crutches at home that he will use for assistance. He was discharged to his home in stable condition on 10/05/18. Discharge instructions were reviewed with the patient. All questions answered, follow up as scheduled.
[2018-10-06] MEDS ORDERED: POLYETHYLENE (MIRALAX) 17 GM PACK PO SCH (06:00)
== END 2018-10-05 11:14 | disposition home or self-care (01) | DRG 481 ==
LOC: ASU 13:56 → 3E 18:28

== ENCOUNTER 2020-08-01 05:26 | Observation (INO) ==
--- NOTE | 2020-07-11 14:53 | PAT Medication Instructions ---
Medication Instructions Date of Service July 11, 2020 Home Medications Medication Instructions Recorded pyridostigmine bromide 60 mg tablet 60 mg PO .COMPLEX #450 tab 07/13/19 multivitamin 1 tab PO QAM sildenafil 100 mg tablet See Rx Instructions PO .COMPLEX PRN pyridostigmine bromide 60 mg tablet 60 mg PO atorvastatin 80 mg tablet 40 mg PO QPM calcium carbonate 600 mg calcium (1,500 mg) tablet 600 mg PO QAM aspirin 325 mg tablet 325 mg PO BID apixaban [Eliquis] 5 mg PO BID flecainide 150 mg PO TID losartan 50 mg PO QAM vitamin E 200 unit PO QAM ASK your prescriber and surgeon aspirin 325 mg tablet 325 mg PO BID apixaban [Eliquis] 5 mg PO BID STOP taking 2 weeks before surgery vitamin E 200 unit PO QAM DO NOT take the morning of surgery multivitamin 1 tab PO QAM sildenafil 100 mg tablet See Rx Instructions PO .COMPLEX PRN calcium carbonate 600 mg calcium (1,500 mg) tablet 600 mg PO QAM losartan 50 mg PO QAM Take morning of surgery With a small sip of water, OTHERWISE NOTHING TO EAT OR DRINK AFTER MIDNIGHT: flecainide 150 mg PO TID pyridostigmine bromide 60 mg tablet 60 mg PO Take evening before surgery flecainide 150 mg PO TID atorvastatin 80 mg tablet 40 mg PO QPM pyridostigmine bromide 60 mg tablet 60 mg PO Other Notes If you have any questions please call us at [phone] or [phone] or [phone] or [phone]
--- NOTE | 2020-07-16 15:54 | Anesthesiology Consultation ---
Date of Service July 16, 2020 Assessment & Plan (1) Encounter for pre-operative examination: Chart Review Chart Review: Acceptable Risk for Surgery (pending surgeon ordered PCP clearance and preop Covid testing ) and Patient seen in Pre Admission Testing Awaiting surgeon ordered PCP clearance scheduled 07/26/20 Per PAT appt on 07/16/20, patient denies any recent travel or large group activities. Pt does work at [employer]. Currently no Covid positive cases. If Covid positives are present- inmates are isolated and patient has no contact with them. Wears PPE at all times at work and in public. No known Covid positive contacts or Covid related symptoms. No known Covid infection in the past 90 days. Educated patient to follow up with surgeon's office regarding Covid testing= will await results. Educated on importance of self quarantining, social distancing and wearing mask in public both for the patient and household contacts. Last seen by neurology July 01, 2020 = seen for 6-month follow-up. Follow-up on myasthenia gravis, diplopia, proptosis. Will get double vision when tired but this is fairly stable. No proptosis. His breathing has been doing well and limb strength has stayed stable over the past 6 months. "Patient has myasthenia gravis, of a relatively mild nature, controlled with pyridostigmine alone. We never did start mycophenolate. The patient has no weakness of the small muscles of the face or head/neck. He has arm weakness which is likely rotator cuff on the right and atrophy which is probably C8 radiculopathy. He has known low back and neck pain with some stenosis." Continue current meds- follow up in six months Right hip closed reduction internal fixation, percutaneous pinning 10/05/2018 = done under [facility]AB at L3-4. 2 attempts. Teaching & Discussion Pre-Anesthesia Teaching/Discussion Notes: Instructed NPO after midnight before surgery,except medications with 15 cc of water. Medication instructions provided according to the PAT guidelines. History Surgery Operation Date: 08/01/20 09:15 Proposed Procedures p Right Total Hip Arthroplasty, Removal Hardware - Louis Rainey MD Height/Weight Height: 5 ft 9 in Weight: 95.4 kg Allergies Allergy/AdvReac Type Severity Reaction Status Date / Time No Known Allergies Allergy Verified 07/08/20 13:50 Medications Home Medications Medication Instructions Recorded Confirmed Last Taken multivitamin 1 tab PO QAM 10/19/18 07/08/20 Unknown sildenafil 100 mg tablet See Rx Instructions PO .COMPLEX PRN 10/19/18 07/08/20 Unknown pyridostigmine bromide 60 mg tablet 60 mg PO .COMPLEX #450 tab 07/13/19 07/08/20 Unknown atorvastatin 80 mg tablet 40 mg PO QPM tab 12/19/19 07/08/20 Unknown calcium carbonate 600 mg calcium 600 mg PO QAM 12/19/19 07/08/20 Unknown (1,500 mg) tablet aspirin 325 mg tablet 325 mg PO BID 12/21/19 07/08/20 Unknown apixaban [Eliquis] 5 mg PO BID 07/08/20 07/08/20 Unknown flecainide 150 mg PO TID 07/08/20 07/08/20 Unknown losartan 50 mg PO QAM 07/08/20 07/08/20 Unknown vitamin E 200 unit PO QAM 07/08/20 07/08/20 Unknown Past Medical History Medical History (Updated 07/16/20 @ 16:20 by Erum Solorzano PA-C) Acid reflux Well controlled and stable - rare occasions Atrial fibrillation FOLLOWS WITH [facility] ERAZO ([facility]) DVT (deep venous thrombosis) 3 YEARS AGO S/T BACK SURGERY [place] filter in place In place for three years History of basal cell carcinoma RT EAR EXCISION Hyperlipemia Hypertension Jaw clicking DOES NOT LOCK Mitral valve prolapse Moderate anterior MPV per 08/28/19 ECHO Myasthenia gravis Neuropathy Bilateral feet Pulmonary embolus 3 YEARS AGO S/P BACK SURGERY Restless leg syndrome Scoliosis Spinal stenosis Transient ischemic attack (TIA) AUGUST 2019 (NO CURRENT PROBLEMS FROM EVENT) Exercise / Class Metabolic Activity II 4-5 Yardwork/Stairs/Walk up hill (one flight of stairs- no chest pain or SOB ) Past Family History Family History Father Hypertension Mother Cancer Past Surgical History Surgical History Family history of reaction to anesthesia MOTHER-NAUSEA Fusion of spine CERVICAL H/O wrist surgery RT (GRAFTING SURGERY) History of carpal tunnel release RT History of colonoscopy History of herniorrhaphy INGUINAL History of lumbar laminectomy History of open reduction and internal fixation (ORIF) procedure RT HIP History of repair of rotator cuff RT History of tonsillectomy and adenoidectomy History of total knee replacement RT/LEFT Past Anesthesia History No Hx of Anesthesia Complications and No Family Hx of Anesthesia Complications (with exception to mother - PONV) History of PONV No Hx of PONV and No Hx of Motion Sickness Social History Smoking Status: Current some day smoker tobacco type: cigars Smoking cigarettes per day: OCAS. CIGAR SMOKER (1 EVERY COUPLE OF WEEKS, HAD ONE YESTERDAY) Do You Dip or Chew Tobacco: No Hx Alcohol Use: Yes Alcohol type: beer alcohol intake frequency: a few times a week Hx Substance Use: No substance use type: does not use Review of Systems Occ palpitations secondary to a fib Hx of snoring- no witnessed apnea- no hx of sleep study Patient denies chest pain, shortness of breath, dyspnea on exertion, cough, wheezing. No hx of seizures, NH. No hx of blood transfusions Physical Exam Vital Signs VITALS BP 109/73 P 61 TEMP 98.5 SP02 95% RESP 16 Constitutional no acute distress ENMT Mouth: no TMJ clicking Thyromental Distance: > or= 3.5 Finger Breadths (3.5) Mallampati Class: I Denies loose or missing teeth Neck + limited neck extension (significant ) Respiratory normal respiratory effort; no respiratory distress Auscultation: lungs clear to auscultation bilaterally; no wheezes Cardiovascular Rate/Rhythm: regular rate and regular rhythm Heart Sounds: no murmur Vessels: no carotid bruit Musculoskeletal Spine: no pain with cervical ROM Extremities: extremities normal to inspection Psychiatric Orientation: alert Testing Laboratory Results 07/16/20 16:03 07/16/20 16:03 PT 10.4 Seconds (9.0-12.0) 07/16/20 16:03 INR 1.0 (0.9-1.1) 07/16/20 16:03 Hemoglobin A1c 5.4 % (4.5-5.6) 07/16/20 16:03 Urine Color Yellow 07/16/20 16:03 Urine Appearance Clear (Clear) 07/16/20 16:03 Urine pH 5.0 (4.5-7.5) 07/16/20 16:03 Ur Specific [place] 1.015 (1.000-1.030) 07/16/20 16:03 Urine Protein Negative (Negative) 07/16/20 16:03 Urine Glucose (UA) Negative (Negative) 07/16/20 16:03 Urine Ketones Negative (Negative) 07/16/20 16:03 Urine Nitrite Negative (Negative) 07/16/20 16:03 Ur Leukocyte Esterase Negative (Negative) 07/16/20 16:03 Blood Type O Positive 07/16/20 16:03 Antibody Screen NEGATIVE 07/16/20 16:03 07/16/20 16:03 Urine Culture - Preliminary Urine,Clean Catch No growth - Less than 1,000 colonies/mL, Final report to follow. Electrocardiogram Date: 07/16/20 Findings: + SB @ (53 bpm) Nonspecific intraventricular conduction block. When compared to EKG from October 04, 2018no significant change was found per cardio. Chest X-Ray Date: 08/27/19 Findings: + NAD 1 view CXR Echocardiogram Date: 08/28/19 EF: 55% Other Findings: + diastolic dysfunction (Grade 1) Valvular Disease: + MR (Mild to moderate) Left atrium moderately dilated. Moderate anterior leaflet mitral valve prolapse. Mild TR. Other Testing Carotid Doppler 06/10/2020 = There is no sonographic evidence of hemodynamically significant stenosis in the right or left carotid arterial system. Antegrade flow is shown in the vertebral arteries.
[2020-07-16 16:47] LABS: Appearance Urine Clear (Clear); Basophils # (auto) 0.01 K/uL (0-0.2); Basophils % (auto) 0.2 %; Bilirubin Urine Negative (Negative); Blood Urine Negative (Negative); Color Urine Yellow; Eosinophils # (auto) 0.08 K/uL (0-0.5); Eosinophils % (auto) 1.3 %; Glucose Urine UA Negative (Negative); Hematocrit (blood only) 39.3 % (42-52); Hemoglobin 13.6 g/dL (14.0-18.0); Immature Granulocytes # (auto) 0.02 K/uL (0.00-0.02); Immature Granulocytes % (auto) 0.3 %; Ketones Urine Negative (Negative); Leukocyte Esterase Urine Negative (Negative); Lymphocytes # (auto) 2.08 K/uL (1.2-3.4); Lymphocytes % (auto) 33.2 %; Mean Corpuscular Hemoglobin 31.1 pg (25-34); Mean Corpuscular Hgb Conc 34.6 g/dL (32-36); Mean Corpuscular Volume 89.7 fL (80-100); Monocytes # (auto) 0.59 K/uL (0.11-0.59); Monocytes % (auto) 9.4 %; Neutrophils # (auto) 3.48 K/uL (1.4-6.5); Neutrophils % (auto) 55.6 %; Nitrite Urine Negative (Negative); Platelet Count 301 K/uL (130-400); Protein Urine Negative (Negative); RDW Coefficient of Variation 13.4 % (11.5-14.5); RDW Standard Deviation 43.9 fL (36.4-46.3); Red Blood Count 4.38 M/uL (4.7-6.1); Specific Gravity Urine 1.015 (1.000-1.030); Urobilinogen Urine Negative (Negative); White Blood Count 6.26 K/uL (4.8-10.8)
[2020-07-16 16:56] LABS: BUN Creatinine Ratio 21.4 (10-20); Calcium 9.1 mg/dl (8.5-10.1); Creatinine Clr Calc Pharmacy 116.5 ml/min; Est GFR (African American) 113.6; Potassium 4.9 mmol/L (3.5-5.1)
[2020-07-16 17:03] LABS: Prothrombin Time 10.4 Seconds (9.0-12.0)
[2020-07-17 06:51] LABS: Estimated Average Glucose 108 mg/dl; Hemoglobin A1C 5.4 % (4.5-5.6)
--- NOTE | 2020-07-17 08:41 | Electrocardiogram Report ---
Test Reason : Blood Pressure : / mmHG Vent. Rate : 053 BPM Atrial Rate : 053 BPM P-R Int : 198 ms QRS Dur : 128 ms QT Int : 430 ms P-R-T Axes : 061 -21 025 degrees QTc Int : 403 ms Sinus bradycardia Non-specific intra-ventricular conduction block Abnormal ECG When compared with ECG of 04-OCT-2018 14:35, No significant change was found Confirmed by Leonel Mcallister ([id number]) on 07/17/2020 8:41:27 AM Referred By: Louis Rainey Confirmed By:Leonel Mcallister
--- NOTE | 2020-07-18 14:03 | History & Physical Report ---
Date of Service July 18, 2020 Assessment & Plan Admission and Anticipated Discharge Date Admission Date: PRE-OP Diagnosis: Right hip osteoarthritis, retained hardware Planned Procedure: Right total hip arthroplasty, hardware removal Plan: Patient is scheduled to undergo this procedure at the [facility] with Dr. Louis Rainey on August 01, 2020. Risks and complications of the procedure such as: Infection, bleeding, pain, scarring, nerve blood vessel damage, weakness, wound problems, stiffness, incomplete relief of symptoms, hardware failure, hardware loosening, wear, fracture, tendon or ligament injury, dislocation, leg length inequality, blood clots, embolism, heart attack, stroke and were explained to the patient at his visit today by Dr. Rainey. Informed consent form the procedure was obtained. Patient also understands risks of proceeding with surgical intervention during the COVID-19 pandemic. Currently he is asymptomatic and understands that he will need to be tested prior to surgery. Patient will need to obtain preoperative medical clearance from his primary care provider Dr. White. Patient states he has an appointment scheduled for next week. Patient has his appointment with anesthesia at the hospital later this afternoon. While there he will obtain a CBC with differential, complete metabolic panel, PT/INR, blood type and screen, urinalysis, urine culture and sensitivity, EKG, hemoglobin A1c and a nasal culture for MRSA. Patient states that he has a walker that he will bring with him on the day of surgery. I also advised him to purchase a hip kit, a raised toilet seat and a shower chair. Today's visit we also reviewed total hip precautions, the total hip packet, the use of antibiotics prior to dental procedures. We also talked about lectures offered by [facility] in regards to joint replacement surgery, discharge planning, and I provided him with paperwork to obtain a handicap placard for his vehicle. I also advised the patient that he will be discharged in the hospital with prescriptions for a narcotic pain medication for postoperative pain control, and anti-inflammatory agent to help with pain and inflammation. He will resume his Eliquis for DVT prophylaxis and he may supplement with extra strength Tylenol for additional pain. Patient is scheduled for 2-week postoperative follow-up with myself on August 16 at 1 PM. If he has questions or concerns should arise prior to his surgery, he will contact clinic. History of Present Illness Chief Complaint: Chief Complaint: Right hip pain Primary Care Provider: Agustin White DO History of Present Illness (including history relevant to procedure): This 65-year-old male presents the clinic today for his preoperative history and physical. In September 2018, he underwent a closed reduction and percutaneous pinning for a valgus impacted femoral neck fracture. He was doing well until the last 3-4 months. Since that time, his hip has caused progressively more pain in the groin. He says it is a nagging, throbbing and stabbing kind of pain. It is worse when the weather changes. He is having difficulty going up and down stairs. He never has a pain-free day. He is taking Tylenol a 1000 mg 3 times per day. Since his last visit, he had a mild stroke and is now on a full-strength aspirin twice a day. He does not believe he has seen a vascular surgeon for this. Patient did have an ultrasound of his carotids that showed no evidence of stenosis in either arterial system. Review Of Systems: A 14 point review of systems is performed and is unremarkable except for those things stated in the HPI and past medical history. Past Medical History: Problems: Retained orthopedic hardware Osteoarthritis of right hip Pre-op exam S/P laminectomy Dural tear Afib Mitral valve prolapse Ocular Myasthenia Spinal stenosis History of syndrome of inappropriate antidiuretic hormone (SIADH) Neck pain Weight disorder Hyperlipidemia Numbness of hand Stroke Hypertension GERD History of basal cell carcinoma Procedure History Procedure Procedure Date Comments Lumbar Laminectomy Surgery - Right Hip 09/2018 Cervical spinal fusion 12/26/2015 Anesthesia for total knee replacement, BILATERAL, 2010 2015 Colonoscopy X2- 2009 2014 Inguinal hernia 2012 - left right Wrist fracture repair surgery 1989 - right , fracture Rotator cuff repair-RIGHT 1989 - right RIGHT Carpal tunnel release 1989 Knee-arthroscopy; bilateral replacement, multiple-1987 1987 - arthroscopy; bilateral replacement Allergies and Sensitivities: NKA Social history: Patient states that he consumes approximately 4 alcoholic beverages per week. He denies tobacco or illicit drug use. Family history: Hypertension, stroke, cancer Current Home Meds: (Last Updated 07/16 14:31) acetaminophen (Tylenol 500 mg oral tablet) 1,000 mg PO q8h PRN: Pain - Mild apixaban (Eliquis 5 mg oral tablet) 5 mg PO bid aspirin (aspirin 325 mg oral delayed release tablet) 325 mg PO bid atorvastatin (atorvastatin 10 mg oral tablet) calcium-vitamin D (calcium with vitamin D 500 mg) 1 tab PO bid flecainide q8h flecainide (flecainide 150 mg oral tablet) 150 mg PO q8h melatonin (melatonin 3 mg oral tablet, extended release) 3 mg PO qhs PRN: Insomnia multivitamin 1 tab PO Daily propafenone (propafenone 225 mg oral tablet) pyridostigmine (pyridostigmine 60 mg oral tablet) 60 mg PO qid vitamin E 1,000 Int_Unit PO Daily Initial Wt: 07/16 95.4 kg 210 lb Allergies Allergy/AdvReac Type Severity Reaction Status Date / Time No Known Allergies Allergy Verified 07/08/20 13:50 Home Medications Medication Instructions Recorded Confirmed Type multivitamin 1 tab PO QAM 10/19/18 07/08/20 History sildenafil 100 mg tablet See Rx Instructions PO .COMPLEX PRN 10/19/18 07/08/20 History pyridostigmine bromide 60 mg tablet 60 mg PO .COMPLEX #450 tab 07/13/19 07/08/20 Rx atorvastatin 80 mg tablet 40 mg PO QPM tab 12/19/19 07/08/20 History calcium carbonate 600 mg calcium 600 mg PO QAM 12/19/19 07/08/20 History (1,500 mg) tablet aspirin 325 mg tablet 325 mg PO BID 12/21/19 07/08/20 History apixaban [Eliquis] 5 mg PO BID 07/08/20 07/08/20 History flecainide 150 mg PO TID 07/08/20 07/08/20 History losartan 50 mg PO QAM 07/08/20 07/08/20 History vitamin E 200 unit PO QAM 07/08/20 07/08/20 History Past Med/Surg History Medical History Acid reflux Well controlled and stable - rare occasions Atrial fibrillation FOLLOWS WITH [facility]. ERAZO ([facility]) DVT (deep venous thrombosis) 3 YEARS AGO S/T BACK SURGERY Feliberto filter in place In place for three years History of basal cell carcinoma RT EAR EXCISION Hyperlipemia Hypertension Jaw clicking DOES NOT LOCK Mitral valve prolapse Moderate anterior MPV per 08/28/19 ECHO Myasthenia gravis Neuropathy Bilateral feet Pulmonary embolus 3 YEARS AGO S/P BACK SURGERY Restless leg syndrome Scoliosis Spinal stenosis Transient ischemic attack (TIA) AUGUST 2019 (NO CURRENT PROBLEMS FROM EVENT) Surgical History Family history of reaction to anesthesia MOTHER-NAUSEA Fusion of spine CERVICAL H/O wrist surgery RT (GRAFTING SURGERY) History of carpal tunnel release RT History of colonoscopy History of herniorrhaphy INGUINAL History of lumbar laminectomy History of open reduction and internal fixation (ORIF) procedure RT HIP History of repair of rotator cuff RT History of tonsillectomy and adenoidectomy History of total knee replacement RT/LEFT Family History Father Hypertension Mother Cancer Social History Smoking Status: Current some day smoker Cigarettes Per Day: OCAS. CIGAR SMOKER (1 EVERY COUPLE OF WEEKS, HAD ONE YESTERDAY); Second Hand Exposure: Yes; Do You Dip or Chew Tobacco: No; Tobacco Cessation Education Requested by Patient: No Hx Alcohol Use: Yes Alcohol type: beer Hx Substance Use: No Preferred Language: [place]ian Communication Ability: Effective Licensing Analyst Required: No Beliefs That Will Affect Care: None marital status: Current Living Situation: Spouse Feels Safe at Home: Yes Safety Concerns: Feels Safe At This Time Assistive Devices: Glasses Review of Systems All systems reviewed & are unremarkable except as noted in Subjective Physical Exam Physical Exam: Physical Exam: (relevant to the procedure, including heart and lung evaluation) General: Alert and oriented x3 with proper grooming and hygiene Eyes: Pupils are equal and reactive to light with accommodation. Extraocular movements are intact Throat: Deferred due to COVID-19 precautions Cardiac: Regular rate and rhythm with a grade 2/6 holosystolic murmur heard best over the left upper sternal border. There are no gallops appreciated Lungs: Clear to auscultation throughout with no wheezing, rales or rhonchi Abdomen: Mildly obese, nondistended, nontender with normal active bowel sounds Extremities: Right hip exam reveals the patient to have no tenderness over his previous incision. His range of motion is restricted to only 85 degrees of hip flexion, external rotation is to 60 degrees, and internal rotation is to -5 degrees. He has positive Stinchfield test. No tenderness over the trochanteric bursa. Distally neurovascularly intact. Neuro: Cranial nerves II through XII are intact no motor or sensory deficit Skin: Normal in appearance no open skin areas or discharge Results & Data ([facility]) Laboratory Results Lab Results 07/16/20 07/16/20 07/16/20 Range/Units 16:03 16:03 16:03 WBC 6.26 (4.8-10.8) K/uL RBC 4.38 L (4.7-6.1) M/uL Hgb 13.6 L (14.0-18.0) g/dL Hct 39.3 L (42-52) % MCV 89.7 (80-100) fL MCH 31.1 (25-34) pg MCHC 34.6 (32-36) g/dL RDW Std Deviation 43.9 (36.4-46.3) fL RDW Coeff of Jesse 13.4 (11.5-14.5) % Plt Count 301 (130-400) K/uL MPV 9.0 (7.4-10.4) fL Immature Gran % (Auto) 0.3 % Neut % (Auto) 55.6 % Lymph % (Auto) 33.2 % Clark % (Auto) 9.4 % Eos % (Auto) 1.3 % Baso % (Auto) 0.2 % Neut # (Auto) 3.48 (1.4-6.5) K/uL Lymph # (Auto) 2.08 (1.2-3.4) K/uL Clark # (Auto) 0.59 (0.11-0.59) K/uL Eos # (Auto) 0.08 (0-0.5) K/uL Baso # (Auto) 0.01 (0-0.2) K/uL Immature Gran # (Auto) 0.02 (0.00-0.02) K/uL PT 10.4 (9.0-12.0) Seconds INR 1.0 (0.9-1.1) Sodium (136-145) mmol/L Potassium (3.5-5.1) mmol/L Chloride (98-107) mmol/L Carbon Dioxide (21-32) mmol/L Anion Gap (3-11) BUN (7-18) mg/dl Creatinine (0.6-1.4) mg/dl Est Cr Clr Drug Dosing ml/min Est GFR ( Amer) Est GFR (Non-Af Amer) BUN/Creatinine Ratio (10-20) Glucose (70-99) mg/dl Estimat Average Glucose mg/dl Hemoglobin A1c (4.5-5.6) % Calcium (8.5-10.1) mg/dl Urine Color Urine Appearance (Clear) Urine pH (4.5-7.5) Ur Specific [place] (1.000-1.030) Urine Protein (Negative) Urine Glucose (UA) (Negative) Urine Ketones (Negative) Urine Blood (Negative) Urine Nitrite (Negative) Urine Bilirubin (Negative) Urine Urobilinogen (Negative) Ur Leukocyte Esterase (Negative) Nasal Screen MRSA (PCR) (Negative) Blood Type O Positive Antibody Screen NEGATIVE 07/16/20 07/16/20 07/16/20 Range/Units 16:03 16:03 16:03 WBC (4.8-10.8) K/uL RBC (4.7-6.1) M/uL Hgb (14.0-18.0) g/dL Hct (42-52) % MCV (80-100) fL MCH (25-34) pg MCHC (32-36) g/dL RDW Std Deviation (36.4-46.3) fL RDW Coeff of Jesse (11.5-14.5) % Plt Count (130-400) K/uL MPV (7.4-10.4) fL Immature Gran % (Auto) % Neut % (Auto) % Lymph % (Auto) % Clark % (Auto) % Eos % (Auto) % Baso % (Auto) % Neut # (Auto) (1.4-6.5) K/uL Lymph # (Auto) (1.2-3.4) K/uL Clark # (Auto) (0.11-0.59) K/uL Eos # (Auto) (0-0.5) K/uL Baso # (Auto) (0-0.2) K/uL Immature Gran # (Auto) (0.00-0.02) K/uL PT (9.0-12.0) Seconds INR (0.9-1.1) Sodium 141 (136-145) mmol/L Potassium 4.9 (3.5-5.1) mmol/L Chloride 112 H (98-107) mmol/L Carbon Dioxide 28 (21-32) mmol/L Anion Gap 1.0 L (3-11) BUN 16 (7-18) mg/dl Creatinine 0.73 (0.6-1.4) mg/dl Est Cr Clr Drug Dosing 116.5 ml/min Est GFR ( Amer) 113.6 Est GFR (Non-Af Amer) 98.0 BUN/Creatinine Ratio 21.4 H (10-20) Glucose 88 (70-99) mg/dl Estimat Average Glucose 108 mg/dl Hemoglobin A1c 5.4 (4.5-5.6) % Calcium 9.1 (8.5-10.1) mg/dl Urine Color Yellow Urine Appearance Clear (Clear) Urine pH 5.0 (4.5-7.5) Ur Specific [place] 1.015 (1.000-1.030) Urine Protein Negative (Negative) Urine Glucose (UA) Negative (Negative) Urine Ketones Negative (Negative) Urine Blood Negative (Negative) Urine Nitrite Negative (Negative) Urine Bilirubin Negative (Negative) Urine Urobilinogen Negative (Negative) Ur Leukocyte Esterase Negative (Negative) Nasal Screen MRSA (PCR) (Negative) Blood Type Antibody Screen 07/16/20 Range/Units 16:03 WBC (4.8-10.8) K/uL RBC (4.7-6.1) M/uL Hgb (14.0-18.0) g/dL Hct (42-52) % MCV (80-100) fL MCH (25-34) pg MCHC (32-36) g/dL RDW Std Deviation (36.4-46.3) fL RDW Coeff of Jesse (11.5-14.5) % Plt Count (130-400) K/uL MPV (7.4-10.4) fL Immature Gran % (Auto) % Neut % (Auto) % Lymph % (Auto) % Clark % (Auto) % Eos % (Auto) % Baso % (Auto) % Neut # (Auto) (1.4-6.5) K/uL Lymph # (Auto) (1.2-3.4) K/uL Clark # (Auto) (0.11-0.59) K/uL Eos # (Auto) (0-0.5) K/uL Baso # (Auto) (0-0.2) K/uL Immature Gran # (Auto) (0.00-0.02) K/uL PT (9.0-12.0) Seconds INR (0.9-1.1) Sodium (136-145) mmol/L Potassium (3.5-5.1) mmol/L Chloride (98-107) mmol/L Carbon Dioxide (21-32) mmol/L Anion Gap (3-11) BUN (7-18) mg/dl Creatinine (0.6-1.4) mg/dl Est Cr Clr Drug Dosing ml/min Est GFR ( Amer) Est GFR (Non-Af Amer) BUN/Creatinine Ratio (10-20) Glucose (70-99) mg/dl Estimat Average Glucose mg/dl Hemoglobin A1c (4.5-5.6) % Calcium (8.5-10.1) mg/dl Urine Color Urine Appearance (Clear) Urine pH (4.5-7.5) Ur Specific [place] (1.000-1.030) Urine Protein (Negative) Urine Glucose (UA) (Negative) Urine Ketones (Negative) Urine Blood (Negative) Urine Nitrite (Negative) Urine Bilirubin (Negative) Urine Urobilinogen (Negative) Ur Leukocyte Esterase (Negative) Nasal Screen MRSA (PCR) Negative (Negative) Blood Type Antibody Screen Diagnostic Findings Studies (relevant to the procedure): X-rays done include a standing AP pelvis, false profile view, and cross-table lateral of the right hip. These are compared with his prior films. In the last 2 years since previous standing AP pelvis x-rays obtained, the superior joint space is significantly narrowed to near [id number] arthritis now. Hardware position is unchanged.
[2020-08-01] MEDS ORDERED: ceFAZolin 2000MG 2,000 MG/15 ML SYR IV SCH (06:00)
[2020-08-01] MEDS ORDERED: LR 60ML/HR IV SCH (06:00)
[2020-08-01] MEDS ORDERED: FAMOTIDINE 20 MG TAB PO SCH (06:00)
[2020-08-01] MEDS ORDERED: traMADol HCL 50 MG TABLET PO SCH (06:00)
[2020-08-01] MEDS ORDERED: Scopolamine 1 MG TDSY TD SCH (06:00)
[2020-08-01] MEDS ORDERED: TRANEXAMIC ACID 1,000 MG **IV Intra-op IV SCH (06:00)
[2020-08-01] MEDS ORDERED: ROPIVACAINE 0.5% HCL/PF 150 MG, BUPIVACAINE 0.75% MPF 20 ML, EPINEPHrine 0.15 MG, Ketor... INFIL SCH (06:00)
[2020-08-01] MEDS ORDERED: TRANEXAMIC ACID 1,000 MG **IV Pre-op IV SCH (06:00)
[2020-08-01] MEDS ORDERED: METOCLOPRAMIDE HCL 10 MG TABLET PO SCH (06:00)
[2020-08-01] MEDS ORDERED: LR 500ML BOLUS, THEN 15ML/HR IV SCH (06:00)
[2020-08-01] MEDS ORDERED: dexAMETHasone 4 MG TAB PO SCH (06:00)
[2020-08-01] MEDS ORDERED: ACETAMINOPHEN 500 MG TAB PO SCH (06:00)
[2020-08-01] MEDS ORDERED: CeleBREX 200 MG CAP PO SCH (06:00)
[2020-08-01] MEDS ORDERED: BUPIVACAINE 0.5 % 5 MG/1 ML PF 10ML VIAL ONE (06:20)
[2020-08-01] MEDS ORDERED: fentaNYL citrate PF 100 MCG/2 ML VIAL ONE (06:36)
[2020-08-01] MEDS ORDERED: MIDAZOLAM HCL 1 MG/ML 2ML VIAL ONE (06:36)
[2020-08-01] MEDS ORDERED: fentaNYL citrate PF 100 MCG/2 ML VIAL IV PRN (06:43)
[2020-08-01] MEDS ORDERED: ePHEDrine sulfate 50 MG/ML AMP IV PRN (06:43)
[2020-08-01] MEDS ORDERED: ONDANSETRON INJ 2 MG/ML 2 ML VIAL IV PRN ×2 (06:43→09:33)
[2020-08-01] MEDS ORDERED: ATROPINE SULFATE 0.1 MG/ML 10ML SYR IV PRN (06:43)
[2020-08-01] MEDS ORDERED: ORTHO JOINT ANESTHETIC ONE (06:57)
--- NOTE | 2020-08-01 07:00 | History & Physical Bridge Note ---
Date of Service August 01, 2020 History & Physical Bridge Note I have examined the patient, reviewed the History & Physical and in the interval since the performance of the History & Physical I have noted the following changes of clinical significance: no changes noted
[2020-08-01] MEDS ORDERED: PROPOFOL IV EMULSION 10 MG/ML 20 ML VIAL IV ONE ×2 (07:47→08:19)
[2020-08-01] MEDS ORDERED: ePHEDrine sulfate 50 MG/ML AMP ONE (08:12)
[2020-08-01] MEDS ORDERED: PHENYLEPHRINE 100MCG/ML 5ML SYR ONE (08:42)
[2020-08-01] MEDS ORDERED: oxyCODONE HCL IR 5 MG TAB (IMMEDIATE RELEASE) PO PRN (09:33)
[2020-08-01] MEDS ORDERED: METOCLOPRAMIDE HCL INJ 5 MG/ML 2 ML VIAL IV PRN (09:33)
[2020-08-01] MEDS ORDERED: ALUMINUM/MAGNESIUM SUSP 30 ML UDC PO PRN (09:33)
[2020-08-01] MEDS ORDERED: HYDROmorphone INJ 0.5 MG/0.5 ML SYR IV PRN (09:33)
[2020-08-01] MEDS ORDERED: diphenhydrAMINE 50 MG/ML VIAL IV PRN (09:33)
[2020-08-01] MEDS ORDERED: bisacodyL 10 MG SUPP PR PRN (09:33)
[2020-08-01] MEDS ORDERED: MAGNESIUM HYDROXIDE SUSP 30 ML UDC PO PRN (09:33)
[2020-08-01] MEDS ORDERED: TAMSULOSIN HCL 0.4 MG CAP PO PRN (09:33)
[2020-08-01] MEDS ORDERED: NALOXONE HCL 0.4 MG/1 ML VIAL/CARP IV PRN (09:33)
--- NOTE | 2020-08-01 09:33 | Operative Report ---
Post Operative Report Pre & Post Diagnosis Operation Date: 08/01/20 07:15 Pre-Op Diagnosis: Right Hip Osteoarthritis, Retained Hardware Post-Op Diagnosis: Right Hip Osteoarthritis, Retained Hardware I identified the patient and participated in the time-out.: Yes Procedure Operation Date: 08/01/20 07:15 Actual Procedures p Right Total Hip Arthroplasty, Removal Hardware(Right) - Louis Rainey MD Surgeon Louis Rainey MD Effervescent Salts Compounder Andrea Chris PA-C Estimated Blood Loss 100 Findings Consistent with Post-Op Diagnosis Specimens right femoral head Complications none Disposition Accompanied Patient To Recovery: No Disposition: Recovery Room Description of Procedure I was present during the entire case assisting with positioning, prepping, draping, wound retraction, wound closure and dressing/abduction pillow placement. No fellow present. Please see Dr. Rainey procedure note for specifics of the case. I attest to the content of the Intraoperative Record and any orders documented therein. Any exceptions are noted below.
--- NOTE | 2020-08-01 09:37 | Post Operative Brief Note ---
Immediate Post Op Note v1 Date of Surgery August 01, 2020 Pre & Post Diagnosis Operation Date: 08/01/20 07:15 Pre-Op Diagnosis: Right Hip Osteoarthritis, Retained Hardware Post-Op Diagnosis: Right Hip Osteoarthritis, Retained Hardware I identified the patient and participated in the time-out.: Yes Procedure Operation Date: 08/01/20 07:15 Actual Procedures p Right Total Hip Arthroplasty, Removal Hardware(Right) - Louis Rainey MD Surgeon Louis Rainey MD Whistle Punk Andrea Chris PA-C Estimated Blood Loss 100 Findings Consistent with Post-Op Diagnosis Specimens Culture swabs sent from Posterior Superior and Anterior Superior screws. Drains Hemovac Drain Anesthesia Type Spinal MAC Complications none Disposition Accompanied Patient To Recovery: No Disposition: Recovery Room
[2020-08-01] MEDS ORDERED: NON-FORMULARY MEDICATION (Sildenafil 100 mg tablet) PO PRN (09:40)
--- NOTE | 2020-08-01 10:08 | Anesthesiology Progress Note ---
Date of Service August 01, 2020 Anesthesia Post Procedure Vital Signs Vital Signs: Temp Pulse Pulse Resp BP BP Pulse Ox 08/01/20 10:00 63 17 111/62 99 08/01/20 09:50 55 L 21 103/67 97 08/01/20 09:40 56 L 17 112/65 100 08/01/20 09:34 96.8 F L 60 16 108/69 99 08/01/20 05:48 98.2 F 61 20 156/94 H 99 Transfer of Care Handoff Completed per policy Notes Mental Status: alert / awake / arousable and participated in evaluation Patient Amnestic to Procedure: Yes Nausea / Vomiting: adequately controlled Pain: adequately controlled Airway Patency, RR, SpO2: stable & adequate BP & HR: stable & adequate Hydration State: stable & adequate Neuraxial Anesthesia: was administered and sensory block is resolving Anesthetic Complications: no major complications apparent and Pt Satisfied with anesthetic care
--- NOTE | 2020-08-01 11:22 | XRay Report ---
XR pelvis 1-2V routine CLINICAL HISTORY: Status post right total hip arthroplasty. Postop. COMPARISON STUDY: Pelvis 07/16/2020. FINDINGS: Interval placement of a right total hip arthroplasty. The hardware appears intact. No fract ure or dislocation within the pelvis or hips. There is moderate osteoarthritis within the left hip, u nchanged. IMPRESSION: Status post right total hip arthroplasty. No evidence for hardware complication. ACT 112: Negative or not required by law. Electronically signed by: Marko Martinez M.D. 08/01/2020 11:21 AM
[2020-08-01] MEDS: pyRIDostigmine bromide 60 MG TAB PO SCH ×3 (12:36→19:38)
[2020-08-01] MEDS: cephALEXin 500 MG CAP PO SCH ×3 (12:36→21:04)
[2020-08-01] MEDS: KETOROLAC TROMETHAMINE 15 MG/ML VIAL IV SCH ×2 (12:42→18:10)
[2020-08-01] MEDS: SODIUM CHLORIDE 0.9% 1,000 ML IV SCH (12:42)
--- NOTE | 2020-08-01 13:31 | Operative Report (OR) ---
DATE OF OPERATION: 08/01/2020 PREOPERATIVE DIAGNOSES: Retained orthopedic hardware and right hip osteoarthritis. POSTOPERATIVE DIAGNOSES: Retained orthopedic hardware and right hip osteoarthritis. OPERATIONS PERFORMED: 1. Removal of orthopedic hardware. 2. Right total hip arthroplasty. SURGEON: Louis Rainey MD. SUBSTATION TECHNICIAN SURGEON: Christo Chris PA-C. No resident or fellow was available to assist. ESTIMATED BLOOD LOSS: 100 mL. SPECIMENS: Culture swabs were sent from the posterior superior and anterior superior screw. COMPLICATIONS: None. IMPLANTS: 1. DePuy AML 16.5 diameter large stature stem. 2. DePuy Barstow 56 outer diameter cup with a 35 mm cancellous bone screw. 3. DePuy AltrX polyethylene liner for a 36-mm femoral head. 4. Biolox delta ceramic 36 mm diameter head with a +1.5 mm offset. INDICATIONS: Mr. Blakely is a 65-year-old male who fell a couple of years ago back in 2019, sustaining a nondisplaced femoral neck fracture. He was noted to have osteoarthritis at that time. However, he did not have much for symptoms at all prior to this fall. Therefore, we treated him with a closed reduction and percutaneous pinning of the hip. He went on to heal his femoral neck fracture. However, he has developed worsening of his osteoarthritis and now has debilitating pain refractory to conservative management. I had a long discussion with him about the risks and benefits of surgery, alternatives to surgery, and expected outcomes. After reviewing all these, he elected to proceed with surgery. All questions were answered. Informed consent was signed. OPERATIVE FINDINGS: The Synthes cannulated screws were removed with only mild difficulty on the inferior screw. There was some yellowish material that came out from the posterior superior and anterior superior screws. This was cultured and irrigated out prior to opening up the capsule and performing the hip replacement. DESCRIPTION OF THE OPERATION: The patient was identified in the preoperative holding area where his surgical site was marked. He was given a spinal anesthetic and brought back to the main operating room where he was placed on the operating room table and carefully moved in lateral decubitus position. Axillary roll was placed. All bony prominences were padded. Perioperative antibiotics were administered. He was prepped and draped in the normal sterile fashion. Prior to incision, a multidisciplinary timeout was called. All in the room were in agreement. We began by opening up his previous incision for his screws on the lateral aspect of the thigh and extending this incision along the femur and then curving posteriorly toward the posterior superior iliac spine for a posterior approach to the hip. Total length of the incision was approximately 18 cm. We dissected down through the subcutaneous tissues to the level of the fascia. Fascia was incised in line with the incision. Charnley bow was placed. Next, we were able to locate the screws by palpation. The most prominent inferior screw was the most easily palpable. I split the vastus lateralis fascia directly over this screw head. We then dissected subperiosteally along the anterior and posterior aspects of the femur and I identified the anterior superior and posterior superior screws. There was a little bit of bone growth over the posterior superior screw head that had to be removed with an osteotome and rongeur. Once the screw head was completely visualized, we then began to back out the screw. When I started to do this, there was some yellowish material that came out of the cannulated portion of the screw. This was swabbed and sent for culture. The anterior superior screw as it started to back out also had some yellowish material, although this was more firm. This was also cultured and sent to pathology. Nothing came out of the inferior screw. After cultures were obtained, we irrigated out the wound with copious amounts of normal saline with pulse lavage. Once the wound was completely clean, we then finished backing out all 3 screws and proceeded on with a hip replacement. The piriformis and short external rotators were dissected off the posterior aspect of the hip capsule. A box cut was made in the capsule. Hip was dislocated. Neck cut was made at 13 mm, which was our preoperative template. Femoral head was removed. Acetabulum was exposed. The labrum was sharply excised. The contents of the cotyloid fossa were removed. We then began reaming with a 50 mm reamer. We reamed him up to a size 56 mm cup. This gave us a healthy bleeding cancellous bone. We irrigated out the acetabulum and then impacted our Barstow Gription cup and 25 degrees of anteversion and 40 degrees of lateral opening. A single cancellous bone screw was placed up in the ilium. Excellent fixation was obtained. At this point, the polyethylene liner for a 36 mm femoral head was impacted into the shell. Osteotome and mallet were used to remove the anterior and inferior osteophytes. We then proceeded to prepare his femur. Jones retractor was placed and the hip abductors were placed with a bent Hohmann. The lateral neck was removed with a box osteotome. Intramedullary guide was used and we began reaming. We reamed all the way up to a size 16 mm reamer, which gave us a good cortical chatter. Once this was complete, we began broaching. We broached him all the way up to a 16.5 mm broach, which sat flush with the calcar cut. We then trialled with a standard offset neck and the +1.5 head. Hip was reduced. We had excellent stability with no impingement with extension and external rotation and at 90 degrees hip flexion, he could be internally rotated 80 degrees before leaving out of the cup. I was very happy with the stability exam. Leg lengths were symmetric. Therefore, the hip was atraumatically dislocated and the femoral trial was removed. The femoral canal was irrigated out with normal saline. We opened up the AML stem large stature 16.5 mm diameter and tapped it down the canal. The prosthesis sat at 1 mm more proud than the broach, which was acceptable. We did retrial with the +1.5 head and our stability exam was unchanged. Leg lengths were still symmetric. Therefore, the real 36 mm diameter ceramic femoral head was opened up. This had a +1.5 mm offset. This was gently impacted onto the trunnion. The hip was atraumatically reduced. Wound was irrigated out with sterile Betadine solution. Periarticular injection cocktail was placed. We then began to close. The piriformis and short external rotators as well as posterior capsule were repaired through bone tunnels and posterior aspect of the greater trochanter with #2 Vicryl suture. The fascia was run with looped #1 PDS. The subcutaneous layer was closed with running #1 PDS. The deep dermal layer was closed with running 2-0 Vicryl. Skin was closed with Dermabond and ZipLine. Silverlon dressing was placed. A compressive dressing was placed over the top of this. The patient was then rolled supine onto the hospital bed and transferred to the recovery room in stable condition. POSTOPERATIVE COURSE: The patient will be admitted overnight for pain control and monitoring. Out of abundance of caution, we will keep him on oral antibiotics until his cultures come back final negative. Should he grow anything from his cultures, we will consult infectious diseases. He has a history of PE in the past with an IVC filter in place, and will therefore resume his Eliquis and aspirin for DVT prophylaxis after surgery. I attest to the content of the Intraoperative Record and any orders documented therein. Any exceptions are noted below. JERILYN
[2020-08-01] MEDS: ACETAMINOPHEN 500 MG TAB PO SCH ×2 (13:51→21:03)
[2020-08-01] MEDS: FLECAINIDE ACETATE 100 MG TABLET PO SCH ×2 (13:52→21:03)
[2020-08-01] MEDS: ceFAZolin 2000MG 2,000 MG/15 ML SYR IV SCH (15:20)
[2020-08-01] MEDS: Scopolamine CHECK PATCH PLACEMENT SCH (15:21)
[2020-08-01] MEDS ORDERED: TRANEXAMIC ACID / 0.7% NACL 1,000 MG/100 ML BAG IV SCH (15:37)
[2020-08-01] MEDS ORDERED: SENNA 8.6 MG TAB PO SCH (21:00)
[2020-08-01] MEDS ORDERED: ATORVASTATIN 40 MG TAB PO SCH (21:00)
[2020-08-01] MEDS: ASPIRIN 325 MG ECTAB PO SCH (21:01)
[2020-08-01] MEDS: DOCUSATE SODIUM 100 MG CAP PO SCH (21:02)
[2020-08-02] MEDS: KETOROLAC TROMETHAMINE 15 MG/ML VIAL IV SCH ×2 (00:05→06:02)
[2020-08-02] MEDS: ceFAZolin 2000MG 2,000 MG/15 ML SYR IV SCH ×2 (00:05→06:02)
[2020-08-02] MEDS: pyRIDostigmine bromide 60 MG TAB PO SCH ×4 (00:05→15:33)
[2020-08-02] MEDS: Scopolamine CHECK PATCH PLACEMENT SCH ×3 (00:12→17:00)
[2020-08-02] MEDS: SODIUM CHLORIDE 0.9% 1,000 ML IV SCH (00:30)
[2020-08-02 05:54] LABS: Eosinophils # (auto) 0.01 K/uL (0-0.5); Eosinophils % (auto) 0.1 %; Hematocrit (blood only) 31.6 % (42-52); Hemoglobin 10.5 g/dL (14.0-18.0); Immature Granulocytes # (auto) 0.02 K/uL (0.00-0.02); Immature Granulocytes % (auto) 0.2 %; Lymphocytes # (auto) 1.74 K/uL (1.2-3.4); Mean Corpuscular Hemoglobin 30.3 pg (25-34); Mean Corpuscular Hgb Conc 33.2 g/dL (32-36); Mean Corpuscular Volume 91.1 fL (80-100); Mean Platelet Volume 8.7 fL (7.4-10.4); Monocytes # (auto) 1.32 K/uL (0.11-0.59); Monocytes % (auto) 11.4 %; Neutrophils # (auto) 8.53 K/uL (1.4-6.5); Neutrophils % (auto) 73.3 %; Platelet Count 234 K/uL (130-400); RDW Coefficient of Variation 13.3 % (11.5-14.5); RDW Standard Deviation 43.8 fL (36.4-46.3); Red Blood Count 3.47 M/uL (4.7-6.1); White Blood Count 11.62 K/uL (4.8-10.8)
[2020-08-02] MEDS: ACETAMINOPHEN 500 MG TAB PO SCH ×2 (06:02→13:57)
[2020-08-02 06:20] LABS: BUN Creatinine Ratio 28.3 (10-20); Calcium 8.4 mg/dl (8.5-10.1); Creatinine Clr Calc Pharmacy 124.7 ml/min; Est GFR (Non-African American) 100.9 ml/min
[2020-08-02] MEDS: DOCUSATE SODIUM 100 MG CAP PO SCH (07:41)
[2020-08-02] MEDS: FLECAINIDE ACETATE 100 MG TABLET PO SCH ×2 (07:41→13:57)
[2020-08-02] MEDS: ASPIRIN 325 MG ECTAB PO SCH (07:41)
[2020-08-02] MEDS: cephALEXin 500 MG CAP PO SCH ×3 (07:42→17:01)
[2020-08-02] MEDS ORDERED: dexAMETHasone 4 MG TAB PO SCH (08:00)
[2020-08-02] MEDS ORDERED: TOCOPHERYL, DL-ALPHA 100 UNITS 67 MG CAP PO SCH (09:00)
[2020-08-02] MEDS ORDERED: APIXABAN 5 MG TABLET PO SCH (09:00)
[2020-08-02] MEDS ORDERED: MULTIVITAMIN TAB PO SCH ×2 (09:00)
[2020-08-02] MEDS ORDERED: CALCIUM CARBONATE 1250MG TAB PO SCH (09:00)
[2020-08-02] MEDS ORDERED: LOSARTAN POTASSIUM 50 MG TAB PO SCH (09:00)
[2020-08-02] MEDS ORDERED: RIVAROXABAN 10 MG TABLET PO SCH (09:00)
--- NOTE | 2020-08-02 09:28 | Orthopedic Progress Note ---
Date of Service August 02, 2020 Assessment & Plan (1) S/P total hip arthroplasty: Total hip precautions reviewed Weightbearing as tolerated with walker assistance PT/OT DVT prophylaxis with Eliquis and BRAEDEN stockings Ice with EZ WRAP Abduction pillow use x6 weeks Pain control with p.o. medications Plan on discharge home later today with in-home physical therapy Keep Silverlon dressing intact until 2-week follow-up Follow-up with [facility] orthopedics previously scheduled With questions contact our clinic at [phone] Admission and Anticipated Discharge Date Admission Date: August 01, 2020 Subjective This 65-year-old male is day 1 status post right total hip arthroplasty with hardware removal. He is doing very well. He states that he has been able to ambulate around the room using his walker. He states that he has no pain whatsoever. He is hopeful that he can be discharged home today after a.m. PT/OT. Currently he denies chest pain, shortness of breath, fever, chills, sweats, lethargy, weakness or numbness or tingling in his right lower extremity. Review of Systems Review of Systems: All systems reviewed & are unremarkable except as noted in Subjective Physical Exam Physical Exam: Right hip: Outer compressive dressing was removed. Silverlon is intact with no drainage on the central portion. Patient is able to actively perform a straight leg raise test. He can actively dorsi and plantarflex his foot. Knee range of motion is from 0 to 90 degrees. Quad strength is 3 of 5. Patient experiences no pain with light passive internal or external hip rotation. Logroll test is negative. Patient is neurovascularly intact in the right lower extremity. Results & Data ([facility]) Vital Signs (Past 12 Hours) Vital Signs Temp Pulse Pulse Resp BP BP Pulse Ox 08/02/20 07:53 36.5 C 45 L 20 118/72 96 08/02/20 03:47 36.8 C 61 16 103/67 98 08/01/20 22:52 36.6 C 59 L 16 94/60 L 96 Laboratory Results 08/02/20 08/02/20 Range/Units 05:31 05:31 WBC 11.62 H (4.8-10.8) K/uL RBC 3.47 L (4.7-6.1) M/uL Hgb 10.5 L (14.0-18.0) g/dL Hct 31.6 L (42-52) % MCV 91.1 (80-100) fL MCH 30.3 (25-34) pg MCHC 33.2 (32-36) g/dL RDW Std Deviation 43.8 (36.4-46.3) fL RDW Coeff of Jesse 13.3 (11.5-14.5) % Plt Count 234 (130-400) K/uL MPV 8.7 (7.4-10.4) fL Immature Gran % (Auto) 0.2 % Neut % (Auto) 73.3 % Lymph % (Auto) 15.0 % Putnam % (Auto) 11.4 % Eos % (Auto) 0.1 % Baso % (Auto) 0.0 % Neut # (Auto) 8.53 H (1.4-6.5) K/uL Lymph # (Auto) 1.74 (1.2-3.4) K/uL Putnam # (Auto) 1.32 H (0.11-0.59) K/uL Eos # (Auto) 0.01 (0-0.5) K/uL Baso # (Auto) 0.00 (0-0.2) K/uL Immature Gran # (Auto) 0.02 (0.00-0.02) K/uL Sodium 140 (136-145) mmol/L Potassium 4.0 (3.5-5.1) mmol/L Chloride 111 H (98-107) mmol/L Carbon Dioxide 24 (21-32) mmol/L Anion Gap 5.0 (3-11) BUN 19 H (7-18) mg/dl Creatinine 0.68 (0.6-1.4) mg/dl Est Cr Clr Drug Dosing 124.7 ml/min Est GFR ( Amer) 117.0 ml/min Est GFR (Non-Af Amer) 100.9 ml/min BUN/Creatinine Ratio 28.3 H (10-20) Glucose 108 H (70-99) mg/dl Calcium 8.4 L (8.5-10.1) mg/dl
--- NOTE | 2020-08-02 09:38 | Discharge Summary ---
Date of Service August 02, 2020 Admission HPI Per Admitting Provider History of Present Illness (including history relevant to procedure): This 65-year-old male presents the clinic today for his preoperative history and physical. In September 2018, he underwent a closed reduction and percutaneous pinning for a valgus impacted femoral neck fracture. He was doing well until the last 3-4 months. Since that time, his hip has caused progressively more pain in the groin. He says it is a nagging, throbbing and stabbing kind of pain. It is worse when the weather changes. He is having difficulty going up and down stairs. He never has a pain-free day. He is taking Tylenol a 1000 mg 3 times per day. Since his last visit, he had a mild stroke and is now on a full-strength aspirin twice a day. He does not believe he has seen a vascular surgeon for this. Patient did have an ultrasound of his carotids that showed no evidence of stenosis in either arterial system. Review Of Systems: A 14 point review of systems is performed and is unremarkable except for those things stated in the HPI and past medical history. Past Medical History: Problems: Retained orthopedic hardware Osteoarthritis of right hip Pre-op exam S/P laminectomy Dural tear Afib Mitral valve prolapse Ocular Myasthenia Spinal stenosis History of syndrome of inappropriate antidiuretic hormone (SIADH) Neck pain Weight disorder Hyperlipidemia Numbness of hand Stroke Hypertension GERD History of basal cell carcinoma Procedure History Procedure Procedure Date Comments Lumbar Laminectomy Surgery - Right Hip 09/2018 Cervical spinal fusion 12/26/2015 Anesthesia for total knee replacement, BILATERAL, 2010 2015 Colonoscopy X2- 2009 2014 Inguinal hernia 2012 - left right Wrist fracture repair surgery 1989 - right , fracture Rotator cuff repair-RIGHT 1989 - right RIGHT Carpal tunnel release 1989 Knee-arthroscopy; bilateral replacement, multiple-1987 1987 - arthroscopy; bilateral replacement Allergies and Sensitivities: NKA Social history: Patient states that he consumes approximately 4 alcoholic beverages per week. He denies tobacco or illicit drug use. Family history: Hypertension, stroke, cancer Current Home Meds: (Last Updated 07/16 14:31) acetaminophen (Tylenol 500 mg oral tablet) 1,000 mg PO q8h PRN: Pain - Mild apixaban (Eliquis 5 mg oral tablet) 5 mg PO bid aspirin (aspirin 325 mg oral delayed release tablet) 325 mg PO bid atorvastatin (atorvastatin 10 mg oral tablet) calcium-vitamin D (calcium with vitamin D 500 mg) 1 tab PO bid flecainide q8h flecainide (flecainide 150 mg oral tablet) 150 mg PO q8h melatonin (melatonin 3 mg oral tablet, extended release) 3 mg PO qhs PRN: Insomnia multivitamin 1 tab PO Daily propafenone (propafenone 225 mg oral tablet) pyridostigmine (pyridostigmine 60 mg oral tablet) 60 mg PO qid vitamin E 1,000 Int_Unit PO Daily Initial Wt: 07/16 95.4 kg 210 lb Admission Exam Per Admitting Provider Physical Exam: (relevant to the procedure, including heart and lung evaluation) General: Alert and oriented x3 with proper grooming and hygiene Eyes: Pupils are equal and reactive to light with accommodation. Extraocular movements are intact Throat: Deferred due to COVID-19 precautions Cardiac: Regular rate and rhythm with a grade 2/6 holosystolic murmur heard best over the left upper sternal border. There are no gallops appreciated Lungs: Clear to auscultation throughout with no wheezing, rales or rhonchi Abdomen: Mildly obese, nondistended, nontender with normal active bowel sounds Extremities: Right hip exam reveals the patient to have no tenderness over his previous incision. His range of motion is restricted to only 85 degrees of hip flexion, external rotation is to 60 degrees, and internal rotation is to -5 degrees. He has positive Stinchfield test. No tenderness over the trochanteric bursa. Distally neurovascularly intact. Neuro: Cranial nerves II through XII are intact no motor or sensory deficit Skin: Normal in appearance no open skin areas or discharge Principal Diagnosis Right hip osteoarthritis Discharge Exam Right hip: Outer compressive dressing was removed. Silverlon is intact with no drainage on the central portion. Patient is able to actively perform a straight leg raise test. He can actively dorsi and plantarflex his foot. Knee range of motion is from 0 to 90 degrees. Quad strength is 3 of 5. Patient experiences no pain with light passive internal or external hip rotation. Logroll test is negative. Patient is neurovascularly intact in the right lower extremity. Discharge Data Allergies Allergy/AdvReac Type Severity Reaction Status Date / Time No Known Allergies Allergy Verified 08/01/20 05:45 Procedures Performed Operation Date: 08/01/20 07:15 Actual Procedures p Right Total Hip Arthroplasty, (Right) - Louis Rainey MD s Removal Hardware - Louis Rainey MD Hospital Course (1) S/P total hip arthroplasty: Patient had an uneventful overnight stay in the hospital following total hip arthroplasty. This morning he is doing very well. He is anxious to be discharged home later today. He will plan on doing in-home physical therapy for the first 2 weeks postoperatively. If he has questions or concerns should arise prior to his 2-week follow-up, he will contact our clinic. Total hip precautions reviewed Weightbearing as tolerated with walker assistance PT/OT DVT prophylaxis with Eliquis and BRAEDEN stockings Ice with EZ WRAP Abduction pillow use x6 weeks Pain control with p.o. medications Plan on discharge home later today with in-home physical therapy Keep Silverlon dressing intact until 2-week follow-up [facility] previously scheduled With questions contact our clinic at [phone] Total Time Total Time Spent Total Time Spent (In Minutes): 20 minutes Total Time Includes: Examination of the Patient, Discharge Planning and Medication Reconciliation Discharge Plan Discharge Items Patient Disposition: Home - Home Health Services Reason For Visit: Right Hip Osteoarthritis, Retained Hardware Discharge Diagnosis: Right Hip Osteoarthritis, Retained Hardware Activity: As commented below Lifting: None Bathing: Keep incision dry Bathing Comment: May shower tomorrow Sexual Activity: Wait until after follow-up appointment Exercise/Sports: Wait until after follow-up appointment Driving/Machine Use: No driving until cleared by vocational services specialist Weightbearing Comment: as tolerated with walker assistance Non-emergency contact: Primary Care Provider Call non-emergency contact if: you have any medication questions, your pain is not controlled, your temperature is above 101.5, your wound has increased drainage and your wound pain has increased Follow-up/Referrals: Agustin White DO [Primary Care Provider] - Diet: Regular Addtl Attending Provider Instructions: Post-operative Instructions Dear Patient and Family/Friends, Before you are discharged from the hospital, it is important to know what to expect when you get home after surgery. To that end, we have created this sheet of discharge instructions which covers many commonly asked questions. Make sure you go through this sheet in its entirety with your nurse before you are discharged. Please note that we will go over the specifics of your surgery and recovery when you return for your first post-operative visit. Sincerely, Dr. Rainey Medications 1. Oxycodone 5 mg: take 1-2 tabs every 4-6 hours as needed for post operative pain control. A prescription for 30 tablets will be sent to your pharmacy 2. Diclofenac Sodium 75 mg: take 1 tab twice daily for 30 days post operatively for pain/inflammation relief. A prescription for 60 tabs with 1 refill will be sent to your pharmacy. 3. Keflex 500 mg: take 1 tab 4x daily for 7 days post operatively for infection prevention. 4. Resume your daily dosages of Eliquis and Aspirin for blood clot prevention 5. Extra strength Tylenol 500 mg : take 2 tabs every 6 hours as needed for additional pain control. Please purchase this medication. Pain Expect to be in a fair amount of pain after surgery. Remember, our goal is not to eliminate your pain, but to make it tolerable. It is a good idea to stay ahead of your pain by taking the medications you were prescribed once you get home. Typically, the pain starts improving 3-7 days after surgery. You should start weaning off the narcotic pain medication (oxycodone, hydrocodone, hydromorphone, morphine) as soon as your pain improves. Please call our office if your pain is not adequately controlled. Ice Ice your operative site at least 5 times a day for 15-30 minutes at a time. Make sure you have a thin cloth between the ice or cooling unit and your skin to prevent tang bite. This is especially important if you received a nerve block. Continue icing your operative site for the first 5-7 days after surgery, then as needed. Diet/Nausea/Vomiting Start by drinking clear liquids and eating crackers. If you can tolerate this, then you may resume your normal diet. If you feel nauseated or vomit, take Zofran/ondansetron (if prescribed). Please call our office if you have intractable nausea or vomiting, or, if after hours, you may go to the Emergency Room for help. Constipation Constipation is a common side effect of narcotic pain medication. If you have not had a bowel movement within 2 days after surgery, we recommend purchasing an over the counter laxative such as Milk of Magnesia, Dulcolax, or Miralax from a local pharmacy, and taking it as instructed. Call our clinic if any questions. Nerve block The anesthesia team sometimes places a nerve block to help with post-operative pain control. This results in significant numbness and inability to move the extremity. The nerve block usually wears off in 8-12 hours, but sometimes can last up to 24 hours. Please call our office if you are still unable to move your extremity after 24 hours, unless you received a pain pump to take home. Nerve blocks typically wear off quickly, so start taking pain medication as soon as you start feeling soreness near your surgical site. Weight bearing and Range of Motion. Do not bear any weight through your operative extremity immediately after surgery. If you had upper extremity surgery, do not lift anything with that arm. If you are in a knee brace, keep it locked in place until your follow-up. We will discuss your weight bearing, range of motion, and lifting restrictions in detail at your first post-operative appointment. Continuous Passive Motion (CPM) Machine If you were prescribed a CPM machine, it will start after your first post- operative appointment, at which time we will give you instructions on the range of motion settings and duration of treatment Physical therapy You will be given a prescription for physical therapy or occupational therapy at your first post-operative appointment. Typically, patients start therapy within 1 week of surgery Wound care and showering We will inspect your wound at your first post-operative visit, and may do a dressing change at that time. Most patients will be in a water-proof dressing that is removed 14 days after surgery. It is normal to see some dried blood on the dressing. Do not remove your dressing, paper strips or sutures yourself unless you are given permission. Showering is allowed the day after surgery. Do not scrub or remove any dressings. The wound should not be submerged underwater (i.e. in a bathtub or pool) until 4 weeks after surgery BRAEDEN stockings If you were given white stockings, these are to be worn at all times except to shower (on both legs) for the first 2 weeks after surgery. Driving You may not drive while taking narcotic pain medication or while in a cast, splint, sling or brace. You, the patient, need to make the final determination about when you are safe to drive, however, the earliest you may consider driving after surgery is below: Hand/Wrist/Elbow Surgery: 3 days Shoulder Surgery: 2 weeks Hip,/Knee/Ankle Surgery: 4 weeks Fracture repair: 6 weeks Return to Work Your return to work depends on what surgery was done and what type of work you do. Please bring any paperwork your employer needs completed to your first post-operative visit. Also, bring a description of your job duties, as this helps us to understand what risks you may face at work. Travel Avoid long distance travel (greater than 1 hour) in airplanes and cars for the first 6 weeks after surgery. If you must travel, you need to have a Doppler ult rasound done before you travel to rule out a blood clot in your legs. Follow-up You should have a follow-up appointment already scheduled 1-2 days after surgery. If not, please contact our office to make this appointment before you leave the hospital. When to call the office It is normal to have swelling and bruising in the limb that was operated on. This will improve with time. It is also normal to have fevers for the first 2 days after surgery. Reasons you should call your doctor include: Uncontrolled pain; Nausea, vomiting, or constipation that does not improve with medication; Fevers over 101.5, chills, sweats; Drainage or bleeding from the wound; Foul odor; Spreading areas of redness; Any other concerns Pending Studies at Discharge: No Stand-Alone Forms: My [facility] Medications and DC Order Prescriptions: New oxycodone 5 mg tablet 5 mg PO Q4H MDD Initial prescription Qty: 30 RF: 0 diclofenac sodium 75 mg tablet,delayed release (DR/EC) 75 mg PO BID 30 Days Qty: 60 RF: 1 cephalexin 500 mg capsule 500 mg PO QID 7 Days Qty: 28 RF: 0 Continued atorvastatin 80 mg tablet 40 mg PO QPM RF: 0 calcium carbonate [Calcium 600] 600 mg calcium (1,500 mg) tablet 600 mg PO QAM RF: 0 pyridostigmine bromide 60 mg tablet 60 mg PO .COMPLEX Qty: 450 RF: 3 sildenafil 100 mg tablet See Rx Instructions PO .COMPLEX PRN (Reason: .) RF: 0 multivitamin tablet 1 tab PO QAM RF: 0 aspirin 325 mg tablet 325 mg PO BID RF: 0 losartan 50 mg Tablet 50 mg PO QAM RF: 0 vitamin E 200 unit Capsule 200 unit PO QAM RF: 0 flecainide 150 mg Tablet 150 mg PO TID RF: 0 Eliquis 5 mg Tablet 5 mg PO BID RF: 0 Discharge Orders: Discharge Order (Routine); Ordered 08/02/20 Ordered By: Bonifacio Chris Admission Data Admit Date/Time: 08/01/20 09:34 Attending Provider: Louis Rainey Admit Provider: Louis Rainey Primary Care Provider: Agustin White Other Providers: [facility]
[2020-08-02] MEDS ORDERED: CeleBREX 200 MG CAP PO SCH (12:00)
== END 2020-08-02 17:06 | disposition home health service (06) ==
LOC: 3E 05:26 → ASU 05:26